=== PATIENT | male | born 1955 | race Caucasian/White ===

== ENCOUNTER 2023-02-05 10:51 | Observation (INO) | payer MEDICARE, SELFPAY ==
[2023-02-05] VITALS (53 sets, daily range): BP systolic 112–219; BP diastolic 66–165; PULSE 48–96; RESP 9–26; TEMP 36.7–37.3; O2SAT 80–100; BMI 30.3
--- NOTE | 2023-02-05 11:32 | ECG_ITS ---
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 Measurements Intervals [place] Rate: 63 P: 60 WA: 207 QRS: -9 QRSD: 106 T: 38 QT: 468 QTc: 480 Interpretive Statements SINUS RHYTHM PROLONGED QT INTERVAL No previous ECG available for comparison Electronically Signed On 02-05-2023 16:27:26 CDT by Dave Torres M.D. [id number]
[2023-02-05 11:43] LABS: Basophils # 0.1 10^3/uL (0.0-0.1); Basophils % 0.3 %; Hematocrit 55.7 % (42.0-52.0); Hemoglobin 19.1 g/dL (11.7-16.6); Lymphocytes # 2.5 10^3/uL (0.8-4.8); Mean Corpuscular HGB Conc 34.3 g/dL (30.0-36.0); Mean Corpuscular Hemoglobin 31.9 pg (28.0-34.0); Mean Platelet Volume 10.4 fL (7.4-10.4); Monocytes # 1.4 10^3/uL (0.2-0.9); Monocytes % 6.7 %; Neutrophils # 16.46 10^3/uL (1.8-7.7); Neutrophils % 80.5 %; Nucleated Red Blood Cells % 0 %; Platelet Count 238 10^3/cmm (130-400); Red Blood Count 5.99 10^6/uL (4.1-5.3); Red Cell Distribution Width 13.1 % (12.1-15.1); White Blood Count 20.4 10^3/uL (4.0-10.0)
--- NOTE | 2023-02-05 11:45 | CT_ITS ---
WS: [id number] CT ABDOMEN PELVIS TECHNIQUE: Contrast-enhanced CT of the abdomen and pelvis with coronal and sagittal reformatted image s. CLINICAL INFORMATION: SBO COMPARISON: None. DLP: 1142.[address] scans at [facility] use at least one of these dose optimization techniques: automated e xposure control; mA and/or kV adjustment per patient size (includes targeted exams where dose is matc hed to clinical indication); or iterative reconstruction. FINDINGS:Evidence of small bowel obstruction with diffuse distended fluid-filled small bowel loops me asuring up to 3.5 CM. Area of transition RIGHT lower quadrant with some swirling in the mesentery matt picious for adhesions or internal hernia. Transition point involves the distal one third ileum. Carrie l ileocecal valve. Normal colon. No pneumatosis or free air Diffuse fatty infiltration liver. Normal gallbladder. Normal portal vein and splenic vein. Small mode rate esophageal hiatal hernia with air-fluid level. Slight bibasilar atelectasis. Splenic granulomas. Fatty atrophy of the pancreas. Normal caliber abdominal aorta. Celiac and SMA are patent. Adrenal gl ands are normal. Normal renal parenchymal enhancement. Portal vein and splenic vein are patent. Heterogeneously enhancing enlarged prostate measuring 4.7 CM. Sigmoid diverticulosis. No evidence of acute diverticulitis. CT/CT abdomen pelvis w con* [id number] IMPRESSION: 1. Small bowel obstruction with fluid distended small bowel loops measuring up to 3.5 cm. No pneumatosis or free air. 2. Transition point to normal caliber small bowel RIGHT lower quadrant involvi ng the distal one third ileum with some swirling of the mesentery suspicious fo r internal hernia or adhesions. Terminal ileum is decompressed. 3. Small moderate esophageal hiatal hernia with air-fluid level. 4. Sigmoid diverticulosis. 5. Enlarged prostate.Correlation PSA. Discussed with Jean Paul Garcia DO at 02/05/2023 12:58 PM.
--- NOTE | 2023-02-05 11:47 | W.ED.ABDPA2 ---
HPI - Abdominal Pain General: Chief Complaint: Abdominal Pain Stated Complaint: abd pain, Fever, N/V Time Seen by Provider: 02/05/23 11:37 Source: patient Mode of arrival: ambulatory Limitations: no limitations History of Present Illness: This patient complains of abdominal pain. He states the pain began approximately 3 AM this morning and has persisted since that time. He states its colicky waxing and waning and cramping in nature. He states that he has been nauseated and has had dry heaves several times today. His last bowel movement was yesterday. He denies any known exposure to bad food, illness, recent travel, antibiotics. He has never had any abdominal surgeries. He states on or about [employer] Day of this year he had similar symptoms that were very short in duration and resolved with multiple loose stools without any bloody stools. No knowledge of history of diverticulosis etc. States he is urinated today some but has not been able to eat or drink. He is a non-smoker has no known history of cardiovascular disease. He lives alone. MD elicited complaint: abdominal pain Pain Consistency: intermittent Location: Diffuse Severity: severe Quality: cramping Radiation: none Migration to: no migration Exacerbating factors: nothing Relieving factors: nothing Associated Symptoms: Denies chills, dysuria, fever(s), hematochezia, hematemesis and melena Review of Systems Const: Denies: fever(s) or chills Eyes: Denies: change in vision ENMT: Denies: throat pain or odynophagia Card: Denies: chest pain or palpitations Resp: Denies: dyspnea, productive cough or non-productive cough GI: Reports: abdominal pain; Denies: hematemesis, hematochezia or melena : Denies: flank pain, difficulty urinating, dysuria or urinary frequency Musc: Denies: neck pain, back pain, extremity pain or extremity swelling Skin/Breast: Denies: rash or pruritus Neuro: Denies: headache(s) Psych: Denies: anxiety or depression Jan/Lymph: Denies: easy bruising or easy bleeding Physical Exam Narrative: EXAM NARRATIVE: Patient's noted to be alert makes good eye contact. He appears to be very uncomfortable intermittently moaning. He will answer questions in a goal-directed and fluent fashion. Const: COMMON NORMALS: patient oriented x3 GENERAL APPEARANCE: cooperative and in distress NUTRITIONAL APPEARANCE: overweight ORIENTATION/CONSCIOUSNESS: Yes awake HENMT: COMMON NORMALS: normocephalic, Normal nasal mucous membranes and turbinates present, moist oral mucous membranes and oropharynx normal HEAD & SCALP: normocephalic NOSE: Normal nasal mucous membranes and turbinates present Eye: COMMON NORMALS: Equal, round and reactive pupils present and EOMs intact bilaterally PUPIL: Yes Equal, round and reactive pupils present Neck/C-Spine: COMMON NORMALS: full ROM, no lymphadenopathy, no JVD and No carotid bruits Chest: COMMONS NORMALS: normal inspection of the chest and normal palpation of entire chest wall Resp: COMMON NORMALS: normal respiratory effort, No retractions and No use of accessory muscles EFFORT & INSPECTION: Yes able to speak in complete sentences Cardio: COMMON NORMALS: no JVD, regular rate, regular rhythm, No murmurs present (Cardio) and Peripheral pulses 2+ throughout RATE: regular rate RHYTHM: regular rhythm PERIPHERAL PULSES: Peripheral pulses 2+ throughout GI: COMMON NORMALS: no masses and no bruits INSPECTION: Yes central obesity AUSCULTATION: Yes Hypoactive bowel sounds present PALPATION: Yes Firmness to palpation present (GI) and Yes Tenderness to palpation present (GI) (Globally tender with voluntary guarding) : COMMON NORMALS: Yes no CVA tenderness BLADDER/KIDNEY EXAM: Yes no CVA tenderness Back/Pelvis: COMMON NORMALS: no CVA tenderness, thoracic and lumbar spine normal to inspection, no thoracic nor lumbar tenderness and thoraco-lumbar ROM normal Extremity: COMMON NORMALS: normal to inspection, full ROM, capillary refill normal, no calf tenderness and no pedal edema Neuro: COMMON NORMALS: patient oriented x3, moves all extremities, no focal motor deficits and no sensory deficits noted CRANIAL NERVES: Yes CN normal except as noted Psych: COMMON NORMALS: mental status grossly normal Skin: COMMON NORMALS: no rashes or lesions noted, no wounds and turgor normal GENERAL SKIN EXAM: no rashes or lesions noted and turgor normal Course Reevaluation(s): Reevaluation #1: The patient's pain is more controlled. Normal vital signs at this time. IV fluids infusing. Discussed his current diagnosis and plans for admission. He voiced understanding. Patient's not displayed any signs of arrhythmia or other concerns at this time about mesenteric ischemia. His consistent with a small bowel obstruction. We will continue with current management and plan for admission. Time: 13:10 Consultations: Consultation #1: Spoke with Dr. Addison general surgery on-call who requested I admit the patient to the hospitalist service and he will follow-up. Time: 13:03 Consultation #2: Discussed with Dr. Harper and hospitalist service to review we reviewed the case and he will plan for admission. Time: 13:05 Vital Signs: Vital signs: Vital Signs Temperature 98.1 F 02/05/23 11:10 Pulse Rate 90 02/05/23 12:55 Respiratory Rate 14 02/05/23 12:55 Blood Pressure 217/165 02/05/23 12:30 Pulse Oximetry 98 02/05/23 12:55 Oxygen Delivery Me thod Nasal Cannula 02/05/23 12:15 Oxygen Flow Rate 3 02/05/23 12:15 MDM - Abdominal Pain Medical Decision Making This patient came to our emergency department with abdominal pain that progressed over the 12 to 18 hours prior to arrival. No prior abdominal surgeries but has had at least 1 similar episode that resolved on its own in the past. Otherwise his general health is claimed to be good. His clinical evaluation here revealed a somewhat distended tense abdomen with guarding. Subsequently work-up was not engaged to evaluate for potential causes such as acute appendicitis, small bowel obstruction, other potential intra-abdominal pathology. Imaging as well as ancillary studies confirmed a small bowel obstruction as the working diagnosis for this patient. Consultation to general surgery was obtained who agreed with the plan for admission to the hospitalist service and he will comanage with the general hospitalist. Differential Diagnosis Likely abdominal pain and small bowel obstruction Lab Data I reviewed the patient's lab results. 02/05/23 11:25 02/05/23 11:25 Labs/Radiology: Laboratory Results WBC 20.4 10^3/uL (4.0-10.0) H 02/05/23 11:25 RBC 5.99 10^6/uL (4.1-5.3) H 02/05/23 11:25 Hgb 19.1 g/dL (11.7-16.6) H 02/05/23 11:25 Hct 55.7 % (42.0-52.0) H 02/05/23 11:25 MCV 93.0 fl (80-94) 02/05/23 11:25 MCH 31.9 pg (28.0-34.0) 02/05/23 11:25 MCHC 34.3 g/dL (30.0-36.0) 02/05/23 11:25 RDW 13.1 % (12.1-15.1) 02/05/23 11:25 Plt Count 238 10^3/cmm (130-400) 02/05/23 11:25 MPV 10.4 fL (7.4-10.4) 02/05/23 11:25 Neut % (Auto) 80.5 % 02/05/23 11:25 Lymph % (Auto) 12.0 % 02/05/23 11:25 [place] % (Auto) 6.7 % 02/05/23 11:25 Eos % (Auto) 0.0 % 02/05/23 11:25 Baso % (Auto) 0.3 % 02/05/23 11:25 Neut # (Auto) 16.46 10^3/uL (1.8-7.7) H 02/05/23 11:25 Lymph # (Auto) 2.5 10^3/uL (0.8-4.8) 02/05/23 11:25 [place] # (Auto) 1.4 10^3/uL (0.2-0.9) H 02/05/23 11:25 Eos # (Auto) 0.0 10^3/uL (0.0-0.8) 02/05/23 11:25 Baso # (Auto) 0.1 10^3/uL (0.0-0.1) 02/05/23 11:25 Nucleated RBC % (auto) 0 % 02/05/23 11:25 Nucleated RBCs # 0.0 /100WBC 02/05/23 11:25 Sodium 139 mmol/L (136-145) 02/05/23 11:25 Potassium 4.0 mmol/L (3.5-5.1) 02/05/23 11:25 Chloride 99 mmol/L (98-107) 02/05/23 11:25 Carbon Dioxide 19 mmol/L (22-29) L 02/05/23 11:25 Anion Gap 25.0 (5-19) H 02/05/23 11:25 BUN 22 mg/dL (8-23) 02/05/23 11:25 Creatinine 1.0 mg/dL (0.7-1.2) 02/05/23 11:25 GFR Calculation 74.5 mL/min (90-130) L 02/05/23 11:25 Glucose 195 mg/dL (65-115) H 02/05/23 11:25 Calculated Osmolality 297 mOsm/kg (285-295) H 02/05/23 11:25 Lactic Acid 3.9 mmol/L (0.5-2.2) H 02/05/23 11:25 Calcium 10.4 mg/dL (8.5-10.5) 02/05/23 11:25 Total Bilirubin 0.8 mg/dL (0.15-1.2) 02/05/23 11:25 AST 25 U/L (0-40) 02/05/23 11:25 ALT 31 U/L (0-41) 02/05/23 11:25 Alkaline Phosphatase 99 U/L (40-130) 02/05/23 11:25 Troponin T Gen 5 ng/L 6 ng/L (0-15) 02/05/23 11:10 Total Protein 8.4 g/dL (6.6-8.7) 02/05/23 11:25 Albumin 4.8 g/dL (3.5-5.2) 02/05/23 11:25 Globulin 3.6 g/dL (1.3-4.6) 02/05/23 11:25 Lipase 20 U/L (13-60) 02/05/23 11:25 EKG Data EKG 1: I personally reviewed and interpreted this EKG as follows: Interpretation: Contemporaneous review of resting EKG reveals a ventricular rate of 63 bpm. Has normal [place] interval, QRS duration, corrected QT interval. Normal axis. No acute ST-T wave changes noted at this time. 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
[2023-02-05] MEDS: ondansetron 2 mg/ML SDV 2 mL 4 MG IVP (11:53)
[2023-02-05] MEDS: HYDROmorphone 1 mg/mL INJ 1 mL IVP ×2 (11:53→13:20)
[2023-02-05] MEDS: sodium chloride 0.9% 1,000 ML 999 ML IV ×2 (11:54→14:53)
[2023-02-05 12:00] LABS: Lactic Sepsis W/Reflex 3.9 mmol/L (0.5-2.2)
[2023-02-05 12:01] LABS: Alanine Aminotransferase 31 U/L (0-41); Albumin Level 4.8 g/dL (3.5-5.2); Alkaline Phosphatase 99 U/L (40-130); Aspartate Amino Transferase 25 U/L (0-40); Blood Urea Nitrogen 22 mg/dL (8-23); Calcium 10.4 mg/dL (8.5-10.5); Carbon Dioxide 19 mmol/L (22-29); Chloride 99 mmol/L (98-107); Globulin 3.6 g/dL (1.3-4.6); Glomerular Filtration Rate 74.5 mL/min (90-130); Glucose 195 mg/dL (65-115); Lipase 20 U/L (13-60); Osmolality Calculated 297 mOsm/kg (285-295); Sodium 139 mmol/L (136-145); Total Bilirubin 0.8 mg/dL (0.15-1.2); Total Protein 8.4 g/dL (6.6-8.7)
[2023-02-05 12:21] LABS: Troponin T (5th) Once 6 ng/L (0-15)
[2023-02-05] MEDS: iohexol 350 mg/mL 500 mL Btl (per mL) IV (12:39)
[2023-02-05 13:24] LABS: Reflex Lactate Order REFLEX LACTIC ORDERD
--- NOTE | 2023-02-05 13:56 | PM.CONSULT ---
Providers/Reason For Consult Consulting Physician/Specialty*: Emergency room physician Reason for Consult*: Small bowel obstruction Primary Care Provider: ROLAN Ryan History of Present Illness History of Present Illness Zuleima Antony is a 67 year old male who presents with a 12 to 24-hour history of abdominal pain, nausea and vomiting. The patient had multiple episodes of small bowel obstruction over the last couple of years. The patient states that they resolved spontaneously. He has not required surgical intervention. The patient is never had surgical intervention on his abdomen. He denies fever or chills. The patient stated that he had a bowel movement within the last 12 hours. He said it was relatively normal possibly little bit small. It was not diarrhea. Review of Systems General: Reports: 10 or more systems reviewed and unremarkable except in HPI and below Medications/Allergies Home Medications Medication Instructions Recorded Confirmed Last Taken Type sour caicedo extract 1,000 mg 1,000 mg PO DAILY 02/05/23 02/05/23 02/05/23 History capsule (Tart Caicedo Extract) Allergies Allergy/AdvReac Type Severity Reaction Status Date / Time No Known Allergies Allergy Verified 02/05/23 11:14 Vitals/I&O/Wt Last Vital Signs Temp 98.1 F 02/05/23 11:10 Pulse 89 02/05/23 13:20 Resp 13 02/05/23 13:20 BP 158/105 02/05/23 13:20 Pulse Ox 97 02/05/23 13:20 O2 Del Method Nasal Cannula 02/05/23 13:15 O2 Flow Rate 3 02/05/23 13:15 02/04/23 02/05/23 02/05/23 22:59 06:59 14:59 Intake Total 1000 / 1000 Balance 1000 / 1000 Weight last 48 hrs Weight 230 lb Physical Exam Narrative: This is a morbidly obese male who appears to be in no acute distress HEENT is normocephalic atraumatic Neck: Free range of motion, nontender. The patient has a midline trachea. There is no masses that I can appreciate. There is no thyromegaly Lungs: Clear to auscultation and percussion Heart: Is regular rate and rhythm without murmurs. There is no S3 or S4. There is no rubs clicks or JVD noted Abdomen: Morbidly obese, soft, no focal tenderness. There is no rebound. The patient has significantly decreased bowel sounds. I do not appreciate any rushes or tinkles. There are no hernias that I can appreciate. There is no costovertebral angle tenderness Extremities: There is no obvious deformities or point tenderness. There is no clubbing cyanosis or edema. The patient has good capillary refill in both hands and feet. Neurologic: The patient is awake, alert, oriented x3. The patient moves all 4 extremities without difficulty. The patient sensations intact to light touch throughout. Data 02/05/23 11:25 02/05/23 11:25 Attestation for Other Data: I personally reviewed and interpreted the following: (I reviewed all the patient's labs as well as the CT scan of the patient's abdomen and pelvis) A&P Assessment and plan (1) Small bowel obstruction: We will follow this patient with the hospitalist. Will place an NG tube. The patient can have ice chips at this time. We will follow the patient with serial exams. If the patient is doing well in the morning we will get a Gastrografin small bowel follow-through. We will make sure the patient is hydrated. The exact etiology of the patient's intermittent small bowel obstructions unclear. Reviewing the CT scan the patient does have some decompressed small bowel and what looks like the mid jejunum. Oddly, the rest of the small bowel is dilated. He just has a short segment that seems to be decompressed. Coding Level of Care Code 05799 Diagnoses Small bowel obstruction K56.609
[2023-02-05 14:34] LABS: Lactic Acid level (Lactate) 1.5 mmol/L (0.5-2.2)
--- NOTE | 2023-02-05 17:40 | PM.HP ---
Providers/Chief Complaint Admitting Physician: Kyle Harper MD Primary Care Provider: ROLAN Ryan Chief Complaint: abd pain, Fever, N/V History of Present Illness Zuleima Antony is a 67 year old male with no significant past medical history came in with chief complaint of Worsening abdominal pain nausea and dry heaves started around 3 AM, and since then progressively worsened.CT abdomen pelvis done showed: Small bowel obstruction.He has denied any prior history of bowel surgery, any sick contact.His pertinent labs and vitals have been reviewed. Surgery has been consulted by ER. Review of Systems General: Reports: 10 or more systems reviewed and unremarkable except in HPI and below Const: Denies: fever(s), chills, body aches, change in appetite or diaphoresis Card: Denies: palpitations, edema, swelling of feet/ankles, dyspnea on exertion, orthopnea or leg pain with exertion Resp: Denies: dyspnea, productive cough, wheezing or pain on inspiration GI: Reports: abdominal pain and nausea; Denies: vomiting, diarrhea or constipation : Denies: flank pain or difficulty urinating Musc: Denies: back pain, extremity pain or extremity swelling Neuro: Denies: headache(s), difficulty walking or confusion Medications/Allergies Home Medications Medication Instructions Recorded Confirmed Last Taken Type sour whyte extract 1,000 mg 1,000 mg PO DAILY 02/05/23 02/05/23 02/05/23 History capsule (Tart Whyte Extract) Allergies Allergy/AdvReac Type Severity Reaction Status Date / Time No Known Allergies Allergy Verified 02/05/23 11:14 Vitals/I&O/Wt Last Vital Signs Temp 98.1 F 02/05/23 11:10 Pulse 82 02/05/23 15:30 Resp 17 02/05/23 15:30 BP 149/90 02/05/23 15:30 Pulse Ox 91 02/05/23 15:30 O2 Del Method Room Air 02/05/23 15:25 O2 Flow Rate 3 02/05/23 13:40 02/05/23 02/05/23 02/05/23 06:59 14:59 22:59 Intake Total 1000 / 1000 1000 / 2000 Balance 1000 / 1000 1000 / 2000 Weight last 48 hrs Weight 104.326 kg Physical Exam Const: COMMON NORMALS: patient oriented x3 HENMT: COMMON NORMALS: normocephalic and atraumatic HEAD & SCALP: normocephalic and atraumatic Resp: COMMON NORMALS: normal respiratory effort, No retractions, No use of accessory muscles and clear to auscultation bilaterally EFFORT & INSPECTION: Yes symmetric chest movement AUSCULTATION: clear to auscultation bilaterally Cardio: COMMON NORMALS: regular rate, regular rhythm, S1 normal heart sound present, S2 normal heart sound present, No gallops present (Cardio), No murmurs present (Cardio), No rub (Cardio) and Peripheral pulses 2+ throughout RATE: regular rate RHYTHM: regular rhythm HEART SOUNDS: S1 normal heart sound present and S2 normal heart sound present PERIPHERAL PULSES: Peripheral pulses 2+ throughout GI: OTHER: Generalized abdominal tenderness with voluntary guarding, hypoactive bowel sounds Extremity: COMMON NORMALS: no clubbing, cyanosis or edema and no pedal edema Neuro: COMMON NORMALS: patient oriented x3 Data 02/06/23 05:24 02/06/23 05:24 A&P Assessment and plan (1) Small bowel obstruction: Plan 67 year old male with no significant past medical history came in with chief complaint of Worsening abdominal pain nausea and dry heaves started around 3 AM, and since then progressively worsened.CT abdomen pelvis done showed: Small bowel obstruction.He has denied any prior history of bowel surgery, any sick contact. Assessment: SBO Current plan is to place NG tube, bowel rest Pain control IV hydration Serial abdominal imaging studies Encourage ambulation Electrolyte corrections CODE STATUS: Full code Attestations Medical Necessity Statement*: Patient is to be in hospital for management of small bowel obstruction. Anticipated length of stay greater 2 midnights Coding Level of Care Code 41272 Diagnoses Small bowel obstruction K56.609
[2023-02-05] MEDS: sodium chloride 0.9% 1,000 ML 100 ML IV (17:54)
[2023-02-05 18:32] LABS: Add Urine Microscopic? YES; Bilirubin Urine 1+ (Negative); Blood Urine Neg (Negative); Glucose Urine UA Norm (Normal); Ketones Urine 1+ (Negative); Leukocyte Esterase Urine Negative (Negative); Nitrate Urine Negative (Negative); Protein Urine 1+ (Negative); Specific Gravity, Urine 1.015 (1.005-1.030); Urine Appearance Clear (CLEAR); Urine Color Yellow (Yellow); Urobilinogen Urine Neg (Negative); pH Urine 5 (5-7)
[2023-02-05 18:33] LABS: Hyaline Casts Urine 0-4 /lpf
--- NOTE | 2023-02-05 19:49 | PC.NURSE ---
Dr. Harper in to see patient and ordered okay to give patient water.
[2023-02-06] MEDS: sodium chloride 0.9% 1,000 ML 100 ML IV (04:08)
--- NOTE | 2023-02-06 04:12 | PC.NURSE ---
Patient reports 3 small bowel movements throughout shift, however these were not visualized by staff.
[2023-02-06 05:07] VITALS: BP 147/69; PULSE 64; RESP 16; TEMP 36.8; O2SAT 95
[2023-02-06 06:05] LABS: Basophils % 0.3 %; Eosinophils # 0.1 10^3/uL (0.0-0.8); Eosinophils % 1.8 %; Lymphocytes # 2.1 10^3/uL (0.8-4.8); Lymphocytes % 27.8 %; Mean Corpuscular HGB Conc 33.3 g/dL (30.0-36.0); Mean Corpuscular Hemoglobin 32.1 pg (28.0-34.0); Mean Corpuscular Volume 96.4 fl (80-94); Mean Platelet Volume 10.2 fL (7.4-10.4); Monocytes # 0.8 10^3/uL (0.2-0.9); Monocytes % 10.3 %; Neutrophils % 59.7 %; Nucleated Red Blood Cells % 0 %; Platelet Count 156 10^3/cmm (130-400); Red Blood Count 4.67 10^6/uL (4.1-5.3); Red Cell Distribution Width 13.4 % (12.1-15.1); White Blood Count 7.7 10^3/uL (4.0-10.0)
[2023-02-06 06:29] LABS: Anion Gap 13.1 (5-19); Blood Urea Nitrogen 23 mg/dL (8-23); Calcium 8.1 mg/dL (8.5-10.5); Carbon Dioxide 23 mmol/L (22-29); Chloride 104 mmol/L (98-107); Glomerular Filtration Rate 84.2 mL/min (90-130); Glucose 113 mg/dL (65-115); Magnesium 2.1 mg/dL (1.7-2.3); Osmolality Calculated 286 mOsm/kg (285-295); Potassium 4.1 mmol/L (3.5-5.1); Sodium 136 mmol/L (136-145)
[2023-02-06 08:00] VITALS: BP 122/77; PULSE 62; RESP 17; TEMP 36.7; O2SAT 95
[2023-02-06 08:20] LABS: Basophils % 0.2 %; Eosinophils # 0.1 10^3/uL (0.0-0.8); Eosinophils % 1.7 %; Hematocrit 46.5 % (42.0-52.0); Hemoglobin 15.6 g/dL (11.7-16.6); Lymphocytes # 2.4 10^3/uL (0.8-4.8); Mean Corpuscular HGB Conc 33.5 g/dL (30.0-36.0); Mean Corpuscular Hemoglobin 32.6 pg (28.0-34.0); Mean Corpuscular Volume 97.1 fl (80-94); Mean Platelet Volume 10.2 fL (7.4-10.4); Monocytes # 0.8 10^3/uL (0.2-0.9); Monocytes % 10.3 %; Neutrophils # 4.65 10^3/uL (1.8-7.7); Neutrophils % 57.6 %; Nucleated Red Blood Cells % 0 %; Platelet Count 165 10^3/cmm (130-400); Red Blood Count 4.79 10^6/uL (4.1-5.3); Red Cell Distribution Width 13.4 % (12.1-15.1); White Blood Count 8.1 10^3/uL (4.0-10.0)
--- NOTE | 2023-02-06 11:51 | PM.PN ---
Subjective Subjective: This patient is afebrile. The patient had multiple bowel movements overnight. The patient is tolerating a full liquid diet. He had no nausea today. The patient states that he feels well. He states that he does not have any abdominal pain. He states that he is over this episode. Medications: Reviewed: Yes Vitals/I&O/Wt Last Vital Signs Temp 98.0 F 02/06/23 08:00 Pulse 62 02/06/23 08:00 Resp 17 02/06/23 08:00 BP 122/77 02/06/23 08:00 Pulse Ox 95 02/06/23 08:00 O2 Del Method Room Air 02/06/23 05:07 O2 Flow Rate 3 02/05/23 13:40 02/05/23 02/06/23 02/06/23 22:59 06:59 14:59 Intake Total 1000 / 2000 1240 / 3240 480 / 480 Output Total 300 / 300 Balance 700 / 1700 1240 / 2940 480 / 480 Weight last 48 hrs Weight 230 lb Weight 230 lb Physical Exam Narrative: Generally: No acute distress Lungs: Clear to auscultation Heart: Regular rate and rhythm without murmurs. There is no S3 or S4. There is no rubs clicks or JVD noted. Abdomen: Obese, soft, nontender, normal active bowel sounds. There is no rushes or tinkles. The patient has no rebound tenderness. There is no hernias that I can appreciate. There is no hepatosplenomegaly. Extremities: No clubbing cyanosis or edema. The patient has good capillary refill in his hands. Neurologic: The patient is awake, alert, oriented x3. The patient moves all 4 extremities without difficulty. The patient sensations intact to light touch throughout. Data 02/06/23 07:45 02/06/23 05:24 Attestation for Other Data: I personally reviewed and interpreted the following: (All labs have been reviewed) A&P Assessment and plan (1) Small bowel obstruction: The exact etiology of the patient's partial small bowel obstruction is unclear. The patient may have some adhesions or some kinking of his small bowel. Either way, what ever this is seems to have resolved. We will place the patient on a regular diet. If the patient tolerates a regular diet I believe the patient can be discharged home later on this afternoon. Attestations Medical Necessity Statement*: Per hospitalist Coding Level of Care Code 76029 Diagnoses Small bowel obstruction K56.609
[2023-02-06 12:00] VITALS: BP 118/74; PULSE 62; RESP 16; TEMP 36.6; O2SAT 95
[2023-02-06 13:32] VITALS: BP 118/74; PULSE 62; RESP 16; TEMP 36.6; O2SAT 95
--- NOTE | 2023-02-06 13:38 | PC.NURSE ---
1330- IV out. Discharge paperwork and education completed. Ambulates out of hospital.
--- NOTE | 2023-02-06 15:22 | P.DS_ITS ---
Discharge Providers Date of Admission: 02/05/23 15:26 Date of Discharge: February 06, 2023 Attending Provider at Admission: Kyle Harper MD Attending Provider at Discharge: Kyle Harper MD Primary Care Provider: ROLAN Ryan Diagnoses at Discharge Discharge Diagnosis (1) Small bowel obstruction: Status: Acute Reason for Visit Reason for Visit: abd pain, Fever, N/V Hospital Course Hospital Course 67 year old male with no significant past medical history came in with chief complaint of Worsening abdominal pain nausea and dry heaves started around 3 AM, and since then progressively worsened.CT abdomen pelvis done showed: Small bowel obstru ction.He has denied any prior history of bowel surgery, any sick contact.Patient was admitted for the management of small bowel obstruction, initially was kept n.p.o. IV fluids pain control antiemetic, electrolytes were monitored, initial plan was to place NG tube, but fortunately patient started having bowel movements, hence NG tube was not placed, Patient was started on clear liquids, and was then advanced to regular diet which he tolerated well. He was discharged in stable condition to home. Physical Exam Const: COMMON NORMALS: patient oriented x3 HENMT: COMMON NORMALS: normocephalic and atraumatic HEAD & SCALP: normocephalic and atraumatic Resp: COMMON NORMALS: normal respiratory effort, No retractions, No use of accessory muscles and clear to auscultation bilaterally EFFORT & INSPECTION: Yes symmetric chest movement AUSCULTATION: clear to auscultation bilaterally Cardio: COMMON NORMALS: regular rate, regular rhythm, S1 normal heart sound present, S2 normal heart sound present, No gallops present (Cardio), No murmurs present (Cardio), No rub (Cardio) and Peripheral pulses 2+ throughout RATE: regular rate RHYTHM: regular rhythm HEART SOUNDS: S1 normal heart sound present and S2 normal heart sound present PERIPHERAL PULSES: Peripheral pulses 2+ throughout GI: COMMON NORMALS: Normal to inspection, nondistended, normoactive bowel sounds present, Soft to palpation and non-tender PALPATION: Yes Soft to palpation Extremity: COMMON NORMALS: no clubbing, cyanosis or edema and no pedal edema Neuro: COMMON NORMALS: patient oriented x3 Discharge Data Studies Completed and Pending Completed Studies During Hospitalization Category Date Time Status CT abdomen pelvis w con* [id number] Stat Cat Scan 02/05/23 11:45 Completed Radiology Impressions Abdomen/Pelvis CT 02/05/23 11:45 IMPRESSION: 1. Small bowel obstruction with fluid distended small bowel loops measuring up to 3.5 cm. No pneumatosis or free air. 2. Transition point to normal caliber small bowel RIGHT lower quadrant involving the distal one third ileum with some swirling of the mesentery suspicious for internal hernia or adhesions. Terminal ileum is decompressed. 3. Small moderate esophageal hiatal hernia with air-fluid level. 4. Sigmoid diverticulosis. 5. Enlarged prostate.Correlation PSA. Discussed with Jean Paul Garcia DO at 02/05/2023 12:58 PM. Laboratory Results WBC 8.1 10^3/uL (4.0-10.0) 02/06/23 07:45 RBC 4.79 10^6/uL (4.1-5.3) 02/06/23 07:45 Hgb 15.6 g/dL (11.7-16.6) 02/06/23 07:45 Hct 46.5 % (42.0-52.0) 02/06/23 07:45 MCV 97.1 fl (80-94) H 02/06/23 07:45 MCH 32.6 pg (28.0-34.0) 02/06/23 07:45 MCHC 33.5 g/dL (30.0-36.0) 02/06/23 07:45 RDW 13.4 % (12.1-15.1) 02/06/23 07:45 Plt Count 165 10^3/cmm (130-400) 02/06/23 07:45 MPV 10.2 fL (7.4-10.4) 02/06/23 07:45 Neut % (Auto) 57.6 % 02/06/23 07:45 Lymph % (Auto) 30.0 % 02/06/23 07:45 [place] % (Auto) 10.3 % 02/06/23 07:45 Eos % (Auto) 1.7 % 02/06/23 07:45 Baso % (Auto) 0.2 % 02/06/23 07:45 Neut # (Auto) 4.65 10^3/uL (1.8-7.7) 02/06/23 07:45 Lymph # (Auto) 2.4 10^3/uL (0.8-4.8) 02/06/23 07:45 [place] # (Auto) 0.8 10^3/uL (0.2-0.9) 02/06/23 07:45 Eos # (Auto) 0.1 10^3/uL (0.0-0.8) 02/06/23 07:45 Baso # (Auto) 0.0 10^3/uL (0.0-0.1) 02/06/23 07:45 Nucleated RBC % (auto) 0 % 02/06/23 07:45 Nucleated RBCs # 0.0 /100WBC 02/06/23 07:45 Sodium 136 mmol/L (136-145) 02/06/23 05:24 Potassium 4.1 mmol/L (3.5-5.1) 02/06/23 05:24 Chloride 104 mmol/L (98-107) 02/06/23 05:24 Carbon Dioxide 23 mmol/L (22-29) 02/06/23 05:24 Anion Gap 13.1 (5-19) 02/06/23 05:24 BUN 23 mg/dL (8-23) 02/06/23 05:24 Creatinine 0.9 mg/dL (0.7-1.2) 02/06/23 05:24 GFR Calculation 84.2 mL/min (90-130) L 02/06/23 05:24 Glucose 113 mg/dL (65-115) 02/06/23 05:24 Calculated Osmolality 286 mOsm/kg (285-295) 02/06/23 05:24 Lactic Acid 3.9 mmol/L (0.5-2.2) H 02/05/23 11:25 Lactic Acid (Sepsis) 1.5 mmol/L (0.5-2.2) 02/05/23 13:53 Calcium 8.1 mg/dL (8.5-10.5) L 02/06/23 05:24 Magnesium 2.1 mg/dL (1.7-2.3) 02/06/23 05:24 Total Bilirubin 0.8 mg/dL (0.15-1.2) 02/05/23 11:25 AST 25 U/L (0-40) 02/05/23 11:25 ALT 31 U/L (0-41) 02/05/23 11:25 Alkaline Phosphatase 99 U/L (40-130) 02/05/23 11:25 Troponin T Gen 5 ng/L 6 ng/L (0-15) 02/05/23 11:10 Total Protein 8.4 g/dL (6.6-8.7) 02/05/23 11:25 Albumin 4.8 g/dL (3.5-5.2) 02/05/23 11:25 Globulin 3.6 g/dL (1.3-4.6) 02/05/23 11:25 Lipase 20 U/L (13-60) 02/05/23 11:25 Urine Color Yellow (Yellow) 02/05/23 17:51 Urine Appearance Clear (CLEAR) 02/05/23 17:51 Urine pH 5 (5-7) 02/05/23 17:51 Ur Specific [place] 1.015 (1.005-1.030) 02/05/23 17:51 Urine Protein 1+ (Negative) H 02/05/23 17:51 Urine Glucose (UA) Norm (Normal) 02/05/23 17:51 Urine Ketones 1+ (Negative) H 02/05/23 17:51 Urine Blood Neg (Negative) 02/05/23 17:51 Urine Nitrate Negative (Negative) 02/05/23 17:51 Urine Bilirubin 1+ (Negative) H 02/05/23 17:51 Urine Urobilinogen Neg mg/dL (Negative) 02/05/23 17:51 Ur Leukocyte Esterase Negative (Negative) 02/05/23 17:51 Urine RBC None /hpf (0-2) 02/05/23 17:51 Urine WBC None /hpf (0-5) 02/05/23 17:51 Ur Squamous Epith Cells None /hpf (0-5) 02/05/23 17:51 Amorphous Sediment Not Reportable 02/05/23 17:51 Urine Bacteria None /hpf (NONE) 02/05/23 17:51 Hyaline Casts 0-4 /lpf H 02/05/23 17:51 Vitals Last Vital Signs Temp 97.9 F 02/06/23 13:32 Pulse 62 02/06/23 13:32 Resp 16 02/06/23 13:32 BP 118/74 02/06/23 13:32 Pulse Ox 95 02/06/23 13:32 O2 Del Method Room Air 02/06/23 05:07 O2 Flow Rate 3 02/05/23 13:40 Discharge Plan Discharge Patient Disposition: Home Condition: Stable Prescriptions: Continued Tart Whyte Extract 1,000 mg Capsule 1,000 mg PO DAILY Discharge Orders: Discharge Order (Routine); Ordered 02/06/23 Ordered By: Kyle Harper Referrals: Jesus Akhtar DO [Staff Physician] - 02/13/23 10:20 am Patient Instructions: Bowel Obstruction (GEN), Opioid Safety Discharge Attestations Time Spent in Discharge Care*: less than 30 min Quality Metrics Clinical Quality Measures [ No reported AMI, CVA or VTE this stay] Coding Level of Care Code Acute Code for Chg Fwd Diagnoses Small bowel obstruction K56.609
== END 2023-02-06 13:39 | disposition home or self-care (01) ==
LOC: ER 13:29 → MEDSURG 15:44
PROVIDERS: Physician Assistant; Admitting Provider Internal Medicine; Emergency Provider Emergency Medicine; PCP Nurse Practitioner; Visit Provider Internal Medicine
DX: K56.609 Unspecified intestinal obstruction, unspecified as to partial versus complete obstruction (principal); E66.9 Obesity, unspecified; Z68.30 Body mass index [BMI] 30.0-30.9, adult; I45.81 Long QT syndrome
CPT/HCPCS: 36415; 74177; 80048; 80053; 81001; 83605; 83690; 83735; 84484; 85025; 93005; 96361; 96374; 96375; 99285; G0378; J1170; J2405; J7030; Q9967

== ENCOUNTER → 2023-02-13 10:01 | Outpatient (BNVA) | payer MEDICARE, SELFPAY | PROVIDERS: PCP Family Medicine; Visit Provider Family Medicine | DX: Z12.5 Encounter for screening for malignant neoplasm of prostate (principal) | CPT/HCPCS: G0103 ==

== ENCOUNTER → 2023-02-24 10:05 | Outpatient (BNVA) | payer MEDICARE, SELFPAY | PROVIDERS: PCP Family Medicine; Visit Provider Nurse Practitioner Family | DX: M10.9 Gout, unspecified (principal) | CPT/HCPCS: 84550 ==

== ENCOUNTER → 2023-03-26 12:58 | Outpatient (BNVA) | payer MEDICARE, SELFPAY | PROVIDERS: PCP Family Medicine; Visit Provider Surgery | DX: R10.9 Unspecified abdominal pain (principal); R14.0 Abdominal distension (gaseous) | CPT/HCPCS: 99203 ==

== ENCOUNTER 2023-04-23 07:12 | Day surgery (SDC) | payer MEDICARE, SELFPAY ==
[2023-04-21 11:42] VITALS: BMI 31.6
[2023-04-23 07:34] VITALS: BP 148/91; PULSE 63; RESP 18; TEMP 36.1; O2SAT 97
[2023-04-23] MEDS: sodium chloride 0.9% 1,000 ML 30 ML IV (07:41)
--- NOTE | 2023-04-23 08:21 | P.ANESASSM_ITS ---
Pre-Anesthetic Assessment Height/Weight: Height 1.85 m Weight 108.862 kg Temp Pulse Resp BP Pulse Ox O2 Del Method 97.0 F L 63 18 148/91 97 Room Air 04/23/23 07:34 04/23/23 07:34 04/23/23 07:34 04/23/23 07:34 04/23/23 07:34 04/23/23 07:34 Operation Date: 04/23/23 08:30 Proposed Procedures p [id number] egd [id number] colon R14.0,R10.9(Not Applicable) - Shaun Shrestha DO s Colonoscopy(Not Applicable) - Shaun Shrestha DO Familial anesthetic complications: none Was Beta Nicole taken within 24 hours: N/A Was Clonidine taken within 24 hours: N/A Last intake: Intake Last Liquid Date 04/22/23 Last Liquid Time 22:30 Last Solid Date 04/21/23 Last Solid Time 21:00 Social No alcohol and No tobacco Exam alert and oriented x 3 Airway Submandibular: within normal limits Cervical ROM: within normal limits Mallampati: Class I Dentition: full History/ROS No significant history except as noted Metabolic Morbid Obesity [facility] [place]/skel gout, arthritis Anesthetic Plan ASA status: 3 Anesthesia: Anesthesia Evaluation, General and MAC Medications/Allergies Home Medications Medication Instructions Recorded Confirmed Last Taken Type sour whyte extract 1,000 mg 1,000 mg PO DAILY 02/05/23 04/23/23 04/21/23 History capsule (Tart Whyte Extract) Allergies Allergy/AdvReac Type Severity Reaction Status Date / Time tetnus shot Allergy Mild ALGY-Fever Uncoded 04/23/23 07:33 Current Medications Generic Name Dose Route Start Last Admin Trade Name Freq PRN Reason Stop Dose Admin Sodium Chloride 1,000 mls @ 30 mls/hr 04/23/23 07:30 04/23/23 07:41 Sodium Chloride 0.9% IV 04/24/23 07:29 30 mls/hr .Q24H JAKI Administration PFSH Anesthesia Medical History (Updated 03/26/23 @ 14:37 by Shaun Shrestha DO) Small bowel obstruction Surgical History (Updated 03/26/23 @ 14:37 by Shaun Shrestha DO) Hx of cataract extraction bilateral Hx of colonoscopy with polypectomy 20 yrs ago Family History Father Cancer Prostate Mother Cancer Breast/Liver Denies family history of Diabetes CAD (coronary artery disease) Dementia Chronic kidney disease (CKD) Bleeding disorder Family history of premature coronary artery disease Lung disease Hypertension Stroke Social History Smoking and tobacco status: never smoked Second hand smoke exposure: No Smoking risk assessment/counseling performed?: No Alcohol intake: current Alcohol intake frequency: holidays/special occasions only Desire information about alcohol rehabilitation?: No Counseling given: No Substance/Drug Use: never Desire information about substance/drug rehabilitation?: No Counseling given: No Adopted: No Caregiver/support person: No Lives independently: Yes Current gender identity: Male Data Anesthesia Cardiac Studies: No Data to Display
--- NOTE | 2023-04-23 09:10 | W.PM.OPSUD ---
Surgery/Procedure H&P Update DATE OF PROCEDURE: April 23, 2023 DATE H&P PERFORMED: 03/26/23 H&P UPDATE INFORMATION: I have reviewed H&P completed within last 30 days, I have examined patient prior to procedure and Changes to prior documentation as noted here CHANGES TO PREVIOUS DOCUMENTATION: Patient has a history of colon polyps and is undergoing a screening colonoscopy PLANNED PROCEDURE: Operation Date: 04/23/23 08:30 Proposed Procedures p [id number] egd [id number] colon R14.0,R10.9(Not Applicable) - DO lilia Buchanan Colonoscopy(Not Applicable) - Shaun Shrestha DO
[2023-04-23 09:37] VITALS: BP 113/81; PULSE 56; RESP 18; TEMP 36.4; O2SAT 92
--- NOTE | 2023-04-23 09:50 | ANE.PACU2 ---
Inpatient post-anesthesia follow up: Airway intact: Yes Vital signs: Temperature 97.5 F Pulse Rate 60 Respiratory Rate 18 Blood Pressure 123/84 Pulse Oximetry 94 Oxygen Delivery Me thod Room Air Oxygen Flow Rate Fraction of Inspir ed Oxygen Hydration adequate: Yes Nausea and vomiting: Yes Pain level: 1 Mental status: Baseline
[2023-04-23 09:52] VITALS: BP 123/84; PULSE 60; RESP 18; O2SAT 94
== END 2023-04-23 10:18 | disposition home or self-care (01) ==
PROVIDERS: PCP Family Medicine; Visit Provider Surgery
PROC: 0DJ08ZZ Inspection of Upper Intestinal Tract, Via Natural or Artificial Opening Endoscopic (ICD-10-PCS; CPT 43235; principal; 2023-04-23 08:30)
PROC: 0DJD8ZZ Inspection of Lower Intestinal Tract, Via Natural or Artificial Opening Endoscopic (ICD-10-PCS; CPT 45378; 2023-04-23 08:30)
DX: R14.0 Abdominal distension (gaseous) (principal); R10.9 Unspecified abdominal pain; K29.80 Duodenitis without bleeding; K26.3 Acute duodenal ulcer without hemorrhage or perforation; K29.50 Unspecified chronic gastritis without bleeding; K44.9 Diaphragmatic hernia without obstruction or gangrene; K57.30 Diverticulosis of large intestine without perforation or abscess without bleeding; Z86.010 Personal history of colon polyps
CPT/HCPCS: 43239; 45378; 88305; 88342; G0121; J2704; J7030

== ENCOUNTER 2023-04-29 07:04 | Inpatient (IN) | payer MEDICARE, SELFPAY ==
[2023-04-29] VITALS (9 sets, daily range): BP systolic 133–168; BP diastolic 78–94; PULSE 57–89; RESP 15–20; TEMP 36.4–36.7; O2SAT 93–99; BMI 30.3
--- NOTE | 2023-04-29 07:13 | CTR_ITS ---
PROCEDURE INFORMATION: Exam: CT Abdomen And Pelvis With Contrast Exam date and time: 04/29/2023 8:00 AM Age: 67 years old Clinical indication: Nausea and vomiting; Additional info: Vomiting/dry heaves, no bm; Concern for obstruction, HX of obstruction; No previous abdominal surgeries; Recent TECHNIQUE: Imaging protocol: Computed tomography of the abdomen and pelvis with contrast. Radiation optimization: All CT scans at this facility use at least one of these dose optimization techniques: automated exposure control; mA and/or kV adjustment per patient size (includes targeted exams where dose is matched to clinical indication); or iterative reconstruction. Contrast material: OMNI 350; Contrast volume: 100 ml; Contrast route: INTRAVENOUS (IV); REPORTING DATA: Count of CT and Cardiac NM exams in prior 12 months: This patient has received [address] and 0 known cardiac nuclear medicine studies in the 12 months prior to the current study. COMPARISON: CT abdomen pelvis w con* [id number] 02/05/2023 12:30 PM RADIATION DOSE METRICS: Total DLP (mGy-cm): 1087.82 FINDINGS: Diaphragm: Small to moderate hiatal hernia. Liver: Tiny hepatic calcification in keeping with sequela of old granulomatous disease. Gallbladder and bile ducts: Normal. No calcified stones. No ductal dilation. Pancreas: Fatty infiltration of the pancreas greatest at the tail. No ductal dilatation. Spleen: Tiny splenic calcifications in keeping with sequela of old granulomatous disease. Adrenal glands: Normal. No mass. Kidneys and ureters: Normal. No hydronephrosis. Stomach and bowel: Mildly dilated fluid-filled ileal small bowel loops measuring 3.3 cm in diameter of the right lower quadrant. Few multifocal areas of relative narrowing at the distal ileum without definite transition point. Couple areas at the distal ileum show submucosal fatty deposition which may be seen in the setting of prior infectious/inflammatory insult. Normal caliber stomach and jejunum. Largely fluid-filled colon with small amount of formed stool contents at the rectosigmoid colon. Colonic diverticulosis without findings of diverticulitis. Appendix: Normal. Intraperitoneal space: Again, there is mild swirling of the mesentery and mild edema/fluid of the right lower quadrant. No free air or rim enhancing fluid collection. Vasculature: Mild systemic atherosclerotic calcification without aneurysmal dilatation. Lymph nodes: No enlarged lymph nodes. Stable subtle graying of the jejunal mesentery with thin pseudocapsule and relative sparing along the traversing vessels and lymph nodes, which are non suspicious and measure less than 5 mm in the short axis. Urinary bladder: Unremarkable as visualized. Reproductive: Enlarged prostate measures 5.8 cm in transverse dimension. Bones/joints: No acute fracture. Degenerative changes along the spine greatest from L3-S1. Soft tissues: Small fat containing bilateral inguinal and umbilical hernias. Other findings: Sequela of old granulomatous disease in the imaged lower chest. CT/CT abdomen pelvis w con* [id number] IMPRESSION: 1. Suspect partial small bowel obstruction with mild right lower quadrant swirling and mesenteric edema raising the possibility of internal hernia and/or adhesive disease. 2. Additional chronic and incidental findings as above, to include small to moderate hiatal hernia, colonic diverticulosis, prostatomegaly, and findings characteristic for sclerosing mesenteritis.
--- NOTE | 2023-04-29 07:14 | ED_ITS ---
Documented by User: JERMAINE Lundy 04/29/23 09:15 HPI - Abdominal Pain General: Chief Complaint: Abdominal Pain Stated Complaint: stomach cramps/Fever/N/V Time Seen by Provider: 04/29/23 07:06 Source: patient Mode of arrival: wheelchair Limitations: no limitations History of Present Illness: Patient is a 67 year old male who presents with complaints of abdominal pain, n ausea and vomiting over the past several hours.?He reports multiple episodes of small bowel obstruction over the last couple of years.? The patient states that they resolve spontaneously and has never required surgical intervention.?He has no previous abdominal surgeries. States symptoms today feel similar. Reporting bloating/cramping. He states his last bowel movement was yesterday and stated it was loose. He relates this to taking stool softeners. Reports he is not passing gas this morning. States upon arrival to the ED he sweaty and feels feverish. Afebrile in triage. Patient had EGD/colonoscopy by Dr. Shrestha 5 benedict ago on 04/23. MD elicited complaint: abdominal pain Pertinent past history: other (previous SBO) Onset (ago): hour(s) Pain Consistency: constant Location: Diffuse Severity: severe Quality: cramping Radiation: none Migration to: no migration Exacerbating factors: nothing Relieving factors: nothing Associated Symptoms: Reports change in bowel habits, GI cramping, fever(s) (subjective-states he feels sweaty), nausea and vomiting; Denies chills, dysuria, hematochezia, hematemesis and melena Review of Systems Const: Reports: fever(s) (subjective-states he feels sweaty); Denies: chills, body aches, fatigue or malaise Card: Denies: chest pain Resp: Denies: dyspnea GI: Reports: abdominal pain, nausea, vomiting, GI cramping and change in bowel habits; Denies: hematemesis, rectal pain, rectal swelling, hematochezia or melena : Denies: flank pain, difficulty urinating, dysuria, urinary frequency, urinary urgency or urinary hesitancy Musc: Denies: neck pain, back pain, extremity pain or joint pain Skin/Breast: Denies: rash Neuro: Denies: headache(s), numbness in extremities, weakness in extremities, sensory changes or dizziness PFSH ED PFSH: Medical History Small bowel obstruction Surgical History Hx of cataract extraction bilateral Hx of colonoscopy with polypectomy 20 yrs ago Family History Father Cancer Prostate Mother Cancer Breast/Liver Denies family history of Diabetes CAD (coronary artery disease) Dementia Chronic kidney disease (CKD) Bleeding disorder Family history of premature coronary artery disease Lung disease Hypertension Stroke Social History Smoking and tobacco status: never smoked Second hand smoke exposure: No Smoking risk assessment/counseling performed?: No Alcohol intake: current Alcohol intake frequency: holidays/special occasions o nly Desire information about alcohol rehabilitation?: No Counseling given: No Substance/Drug Use: never Desire information about substance/drug rehabilitation?: No Counseling given: No Adopted: No Caregiver/support person: No Lives independently: Yes Current gender identity: Male Physical Exam Const: COMMON NORMALS: patient oriented x3, no limitations and alert GENERAL APPEARANCE: cooperative and in distress (appears uncomfortable) NUTRITIONAL APPEARANCE: overweight ORIENTATION/CONSCIOUSNESS: Yes awake, Yes oriented to person, Yes oriented to place and Yes oriented to time Eye: COMMON NORMALS: no scleral icterus Resp: COMMON NORMALS: normal respiratory effort and clear to auscultation bilaterally AUSCULTATION: clear to auscultation bilaterally Cardio: COMMON NORMALS: regular rate and regular rhythm RATE: regular rate RHYTHM: regular rhythm GI: COMMON NORMALS: Soft to palpation and no masses INSPECTION: Yes normal to inspection AUSCULTATION: Yes Absent bowel sounds PALPATION: Yes Soft to palpation, Yes Tenderness to palpation present (GI) (diffusely), No Guarding due to palpation present (GI) and No Rigid due to palpation : COMMON NORMALS: Yes no CVA tenderness BLADDER/KIDNEY EXAM: Yes no CVA tenderness Back/Pelvis: COMMON NORMALS: no CVA tenderness, thoracic and lumbar spine normal to inspection, no thoracic nor lumbar tenderness and thoraco-lumbar ROM normal Extremity: COMMON NORMALS: normal to inspection GENERAL: Yes normal exam except as noted Neuro: GUSTAVO COMA SCALE: document GCS findings Gustavo coma scale eye open ing: Spontaneous Gustavo coma scale verbal response: Orientated Gustavo coma scale motor response: Obey commands [place] coma scale total score: 15 COMMON NORMALS: patient oriented x3 SENSORIUM/ORIENTATION: Yes alert, Yes oriented to person, Yes oriented to place and Yes oriented to time Skin: COMMON NORMALS: no rashes or lesions noted GENERAL SKIN EXAM: no rashes or lesions noted Course Consultations: Consultation #1: Dr. Shrestha-will admit patient-requests maintenance fluids at 150cc/hour and NG tube placement Consultation #2: Dr. Hilton-recommends magnesium, phosphorus, TSH, hemoglobin A1c; admit to [facility] Vital Signs: Vital signs: Vital Signs Temperature 98.1 F 04/29/23 07:11 Pulse Rate 57 L 04/29/23 07:11 Respiratory Rate 20 H 04/29/23 07:11 Blood Pressure 168/94 04/29/23 07:11 Pulse Oximetry 98 04/29/23 07:39 Oxygen Delivery Me thod Room Air 04/29/23 07:39 MDM - Abdominal Pain Medical Decision Making Patient is a 67-year-old male here with a suspected partial small bowel obstruction. He is not passing stool or flatulence. He states his symptoms feel like previous bowel obstructions. He is requesting hospitalization which I think is reasonable. I spoke to Dr. Shrestha who will consult on patient while in the hospital-recommends fluids at 150 cc/hour and NG tube placement. I spoke to Dr. Hilton who will admit the patient. Lab Data 04/29/23 07:15 04/29/23 07:15 Labs/Radiology: Radiology Impressions Abdomen/Pelvis CT 04/29/23 07:13 IMPRESSION: 1. Suspect partial small bowel obstruction with mild right lower quadrant swirling and mesenteric edema raising the possibility of internal hernia and/or adhesive disease. 2. Additional chronic and incidental findings as above, to include small to moderate hiatal hernia, colonic diverticulosis, prostatomegaly, and findings characteristic for sclerosing mesenteritis. Chest X-Ray 04/29/23 09:00 IMPRESSION: No acute findings. Laboratory Results WBC 13.6 10^3/uL (4.0-10.0) H 04/29/23 07:15 RBC 5.57 10^6/uL (4.1-5.3) H 04/29/23 07:15 Hgb 18.0 g/dL (11.7-16.6) H 04/29/23 07:15 Hct 52.3 % (42.0-52.0) H 04/29/23 07:15 MCV 93.9 fl (80-94) 04/29/23 07:15 MCH 32.3 pg (28.0-34.0) 04/29/23 07:15 MCHC 34.4 g/dL (30.0-36.0) 04/29/23 07:15 RDW 13.1 % (12.1-15.1) 04/29/23 07:15 Plt Count 217 10^3/cmm (130-400) 04/29/23 07:15 MPV 10.1 fL (7.4-10.4) 04/29/23 07:15 Neut % (Auto) 79.7 % 04/29/23 07:15 Lymph % (Auto) 13.7 % 04/29/23 07:15 [place] % (Auto) 5.8 % 04/29/23 07:15 Eos % (Auto) 0.3 % 04/29/23 07:15 Baso % (Auto) 0.2 % 04/29/23 07:15 Neut # (Auto) 10.80 10^3/uL (1.8-7.7) H 04/29/23 07:15 Lymph # (Auto) 1.9 10^3/uL (0.8-4.8) 04/29/23 07:15 [place] # (Auto) 0.8 10^3/uL (0.2-0.9) 04/29/23 07:15 Eos # (Auto) 0.0 10^3/uL (0.0-0.8) 04/29/23 07:15 Baso # (Auto) 0.0 10^3/uL (0.0-0.1) 04/29/23 07:15 Nucleated RBC % (auto) 0 % 04/29/23 07:15 Nucleated RBCs # 0.0 /100WBC 04/29/23 07:15 Sodium 139 mmol/L (136-145) 04/29/23 07:15 Potassium 4.5 mmol/L (3.5-5.1) 04/29/23 07:15 Chloride 102 mmol/L (98-107) 04/29/23 07:15 Carbon Dioxide 24 mmol/L (22-29) 04/29/23 07:15 Anion Gap 17.5 (5-19) 04/29/23 07:15 BUN 21 mg/dL (8-23) 04/29/23 07:15 Creatinine 1.1 mg/dL (0.7-1.2) 04/29/23 07:15 GFR Calculation 66.8 mL/min (90-130) L 04/29/23 07:15 Glucose 170 mg/dL (65-115) H 04/29/23 07:15 Calculated Osmolality 295 mOsm/kg (285-295) 04/29/23 07:15 Lactic Acid 2.1 mmol/L (0.5-2.2) 04/29/23 07:15 Calcium 10.3 mg/dL (8.5-10.5) 04/29/23 07:15 Total Bilirubin 0.8 mg/dL (0.15-1.2) 04/29/23 07:15 AST 22 U/L (0-40) 04/29/23 07:15 ALT 28 U/L (0-41) 04/29/23 07:15 Alkaline Phosphatase 101 U/L (40-130) 04/29/23 07:15 Total Protein 8.0 g/dL (6.6-8.7) 04/29/23 07:15 Albumin 4.7 g/dL (3.5-5.2) 04/29/23 07:15 Globulin 3.3 g/dL (1.3-4.6) 04/29/23 07:15 Lipase 21 U/L (13-60) 04/29/23 07:15 Urine Color Yellow (Yellow) 04/29/23 05:20 Urine Appearance Clear (CLEAR) 04/29/23 05:20 Urine pH 5 (5-7) 04/29/23 05:20 Ur Specific [place] 1.005 (1.005-1.030) 04/29/23 05:20 Urine Protein Trace (Negative) 04/29/23 05:20 Urine Glucose (UA) Norm (Normal) 04/29/23 05:20 Urine Ketones Negative (Negative) 04/29/23 05:20 Urine Blood Neg (Negative) 04/29/23 05:20 Urine Nitrate Negative (Negative) 04/29/23 05:20 Urine Bilirubin Neg (Negative) 04/29/23 05:20 Urine Urobilinogen Norm mg/dL (Negative) 04/29/23 05:20 Ur Leukocyte Esterase Negative (Negative) 04/29/23 05:20 Urine RBC Rare /hpf (0-2) 04/29/23 05:20 Urine WBC Rare /hpf (0-5) 04/29/23 05:20 Ur Squamous Epith Cells None /hpf (0-5) 04/29/23 05:20 Amorphous Sediment Not Reportable 04/29/23 05:20 Urine Bacteria None /hpf (NONE) 04/29/23 05:20 Discharge Plan Discharge Patient Disposition: Admitted As Inpatient Clinical Impression: Partial obstruction of small intestine Condition: Stable Coding Level of Care Code 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 Documented by User: Philippe Lock DO 04/29/23 09:32 HPI - Abdominal Pain 2 General: Chief Complaint: Abdominal Pain Stated Complaint: stomach cramps/Fever/N/V Time Seen by Provider: 04/29/23 07:06 PFS ED PFSH: Medical History Small bowel obstruction Surgical History Hx of cataract extraction bilateral Hx of colonoscopy with polypectomy 20 yrs ago Family History Father Cancer Prostate Mother Cancer Breast/Liver Denies family history of Diabetes CAD (coronary artery disease) Dementia Chronic kidney disease (CKD) Bleeding disorder Family history of premature coronary artery disease Lung disease Hypertension Stroke Social History Smoking and tobacco status: never smoked Second hand smoke exposure: No Smoking risk assessment/counseling performed?: No Alcohol intake: current Alcohol intake frequency: holidays/special occasions only Desire information about alcohol rehabilitation?: No Counseling given: No Substance/Drug Use: never Desire information about substance/drug rehabilitation?: No Counseling given: No Adopted: No Caregiver/support person: No Lives independently: Yes Current gender identity: Male Physical Exam Neuro: GUSTAVO COMA SCALE: document GCS findings [place] coma scale total score: 15 Course Vital Signs: Vital signs: Vital Signs Temperature 98.1 F 04/29/23 07:11 Pulse Rate 57 L 04/29/23 07:11 Respiratory Rate 20 H 04/29/23 07:11 Blood Pressure 168/94 04/29/23 07:11 Pulse Oximetry 98 04/29/23 07:39 Oxygen Delivery Me thod Room Air 04/29/23 07:39 MDM - Abdominal Pain Medical Decision Making Patient is a 67-year-old male here with a suspected partial small bowel obstruction. He is not passing stool or flatulence. He states his symptoms feel like previous bowel obstructions. He is requesting hospitalization which I think is reasonable. I spoke to Dr. Shrestha who will consult on patient while in the hospital-recommends fluids at 150 cc/hour and NG tube placement. I spoke to Dr. Hilton who will admit the patient. Chart reviewed and patient discussed with midlevel. Agree with assessment and plan. Medical Records I reviewed the patient's medical records. Lab Data I reviewed the patient's lab results. 04/29/23 07:15 04/29/23 07:15 Labs/Radiology: Radiology Impressions Abdomen/Pelvis CT 04/29/23 07:13 IMPRESSION: 1. Suspect partial small bowel obstruction with mild right lower quadrant swirling and mesenteric edema raising the possibility of internal hernia and/or adhesive disease. 2. Additional chronic and incidental findings as above, to include small to moderate hiatal hernia, colonic diverticulosis, prostatomegaly, and findings characteristic for sclerosing mesenteritis. Chest X-Ray 04/29/23 09:00 IMPRESSION: No acute findings. Laboratory Results WBC 13.6 10^3/uL (4.0-10.0) H 04/29/23 07:15 RBC 5.57 10^6/uL (4.1-5.3) H 04/29/23 07:15 Hgb 18.0 g/dL (11.7-16.6) H 04/29/23 07:15 Hct 52.3 % (42.0-52.0) H 04/29/23 07:15 MCV 93.9 fl (80-94) 04/29/23 07:15 MCH 32.3 pg (28.0-34.0) 04/29/23 07:15 MCHC 34.4 g/dL (30.0-36.0) 04/29/23 07:15 RDW 13.1 % (12.1-15.1) 04/29/23 07:15 Plt Count 217 10^3/cmm (130-400) 04/29/23 07:15 MPV 10.1 fL (7.4-10.4) 04/29/23 07:15 Neut % (Auto) 79.7 % 04/29/23 07:15 Lymph % (Auto) 13.7 % 04/29/23 07:15 [place] % (Auto) 5.8 % 04/29/23 07:15 Eos % (Auto) 0.3 % 04/29/23 07:15 Baso % (Auto) 0.2 % 04/29/23 07:15 Neut # (Auto) 10.80 10^3/uL (1.8-7.7) H 04/29/23 07:15 Lymph # (Auto) 1.9 10^3/uL (0.8-4.8) 04/29/23 07:15 [place] # (Auto) 0.8 10^3/uL (0.2-0.9) 04/29/23 07:15 Eos # (Auto) 0.0 10^3/uL (0.0-0.8) 04/29/23 07:15 Baso # (Auto) 0.0 10^3/uL (0.0-0.1) 04/29/23 07:15 Nucleated RBC % (auto) 0 % 04/29/23 07:15 Nucleated RBCs # 0.0 /100WBC 04/29/23 07:15 Sodium 139 mmol/L (136-145) 04/29/23 07:15 Potassium 4.5 mmol/L (3.5-5.1) 04/29/23 07:15 Chloride 102 mmol/L (98-107) 04/29/23 07:15 Carbon Dioxide 24 mmol/L (22-29) 04/29/23 07:15 Anion Gap 17.5 (5-19) 04/29/23 07:15 BUN 21 mg/dL (8-23) 04/29/23 07:15 Creatinine 1.1 mg/dL (0.7-1.2) 04/29/23 07:15 GFR Calculation 66.8 mL/min (90-130) L 04/29/23 07:15 Glucose 170 mg/dL (65-115) H 04/29/23 07:15 Calculated Osmolality 295 mOsm/kg (285-295) 04/29/23 07:15 Lactic Acid 2.1 mmol/L (0.5-2.2) 04/29/23 07:15 Calcium 10.3 mg/dL (8.5-10.5) 04/29/23 07:15 Total Bilirubin 0.8 mg/dL (0.15-1.2) 04/29/23 07:15 AST 22 U/L (0-40) 04/29/23 07:15 ALT 28 U/L (0-41) 04/29/23 07:15 Alkaline Phosphatase 101 U/L (40-130) 04/29/23 07:15 Total Protein 8.0 g/dL (6.6-8.7) 04/29/23 07:15 Albumin 4.7 g/dL (3.5-5.2) 04/29/23 07:15 Globulin 3.3 g/dL (1.3-4.6) 04/29/23 07:15 Lipase 21 U/L (13-60) 04/29/23 07:15 Urine Color Yellow (Yellow) 04/29/23 05:20 Urine Appearance Clear (CLEAR) 04/29/23 05:20 Urine pH 5 (5-7) 04/29/23 05:20 Ur Specific [place] 1.005 (1.005-1.030) 04/29/23 05:20 Urine Protein Trace (Negative) 04/29/23 05:20 Urine Glucose (UA) Norm (Normal) 04/29/23 05:20 Urine Ketones Negative (Negative) 04/29/23 05:20 Urine Blood Neg (Negative) 04/29/23 05:20 Urine Nitrate Negative (Negative) 04/29/23 05:20 Urine Bilirubin Neg (Negative) 04/29/23 05:20 Urine Urobilinogen Norm mg/dL (Negative) 04/29/23 05:20 Ur Leukocyte Esterase Negative (Negative) 04/29/23 05:20 Urine RBC Rare /hpf (0-2) 04/29/23 05:20 Urine WBC Rare /hpf (0-5) 04/29/23 05:20 Ur Squamous Epith Cells None /hpf (0-5) 04/29/23 05:20 Amorphous Sediment Not Reportable 04/29/23 05:20 Urine Bacteria None /hpf (NONE) 04/29/23 05:20 Discharge Plan Discharge Patient Disposition: Admitted As Inpatient Clinical Impression: Partial obstruction of small intestine Condition: Stable Coding Level of Care Code 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
[2023-04-29 07:26] LABS: Basophils % 0.2 %; Eosinophils % 0.3 %; Hematocrit 52.3 % (42.0-52.0); Lymphocytes # 1.9 10^3/uL (0.8-4.8); Lymphocytes % 13.7 %; Mean Corpuscular HGB Conc 34.4 g/dL (30.0-36.0); Mean Corpuscular Hemoglobin 32.3 pg (28.0-34.0); Mean Corpuscular Volume 93.9 fl (80-94); Mean Platelet Volume 10.1 fL (7.4-10.4); Monocytes # 0.8 10^3/uL (0.2-0.9); Monocytes % 5.8 %; Neutrophils % 79.7 %; Nucleated Red Blood Cells % 0 %; Platelet Count 217 10^3/cmm (130-400); Red Blood Count 5.57 10^6/uL (4.1-5.3); Red Cell Distribution Width 13.1 % (12.1-15.1); White Blood Count 13.6 10^3/uL (4.0-10.0)
[2023-04-29] MEDS: ondansetron 2 mg/ML SDV 2 mL 4 MG IVP (07:26)
[2023-04-29] MEDS: morphine 4 mg/mL SDV 1 mL IVP (07:26)
[2023-04-29] MEDS: sodium chloride 0.9% 1,000 ML 999 ML IV (07:26)
[2023-04-29 07:45] LABS: Lactic Sepsis W/Reflex 2.1 mmol/L (0.5-2.2)
[2023-04-29 07:48] LABS: Alanine Aminotransferase 28 U/L (0-41); Albumin Level 4.7 g/dL (3.5-5.2); Alkaline Phosphatase 101 U/L (40-130); Anion Gap 17.5 (5-19); Aspartate Amino Transferase 22 U/L (0-40); Blood Urea Nitrogen 21 mg/dL (8-23); Calcium 10.3 mg/dL (8.5-10.5); Carbon Dioxide 24 mmol/L (22-29); Chloride 102 mmol/L (98-107); Globulin 3.3 g/dL (1.3-4.6); Glomerular Filtration Rate 66.8 mL/min (90-130); Glucose 170 mg/dL (65-115); Lipase 21 U/L (13-60); Osmolality Calculated 295 mOsm/kg (285-295); Potassium 4.5 mmol/L (3.5-5.1); Sodium 139 mmol/L (136-145); Total Bilirubin 0.8 mg/dL (0.15-1.2)
[2023-04-29] MEDS: iohexol 350 mg/mL 500 mL Btl (per mL) IV (08:07)
[2023-04-29 08:44] LABS: Add Urine Microscopic? YES; Bilirubin Urine Neg (Negative); Blood Urine Neg (Negative); Glucose Urine UA Norm (Normal); Ketones Urine Negative (Negative); Leukocyte Esterase Urine Negative (Negative); Nitrate Urine Negative (Negative); Protein Urine Trace (Negative); Specific Gravity, Urine 1.005 (1.005-1.030); Urine Appearance Clear (CLEAR); Urine Color Yellow (Yellow); Urobilinogen Urine Norm (Negative); pH Urine 5 (5-7)
[2023-04-29 08:50] LABS: RBC Urine RARE /hpf (0-2); WBC Urine RARE /hpf (0-5)
--- NOTE | 2023-04-29 09:00 | XRR_ITS ---
PROCEDURE INFORMATION: Exam: XR Chest Exam date and time: 04/29/2023 9:04 AM Age: 67 years old Clinical indication: Condition or disease; Other: Bowel obstruction. ; Additional info: Admission TECHNIQUE: Imaging protocol: Radiologic exam of the chest. Views: 1 view. COMPARISON: 1. CT abdomen pelvis w con* [id number] 04/29/2023 8:[address] abdomen pelvis w con* [id number] 02/05/2023 12:30 PM FINDINGS: Lungs: Unremarkable. No consolidation. Pleural spaces: Unremarkable. No pleural effusion. No pneumothorax. Heart/Mediastinum: Unremarkable. No cardiomegaly. Bones/joints: Unremarkable. XR/XR chest 1V portable [id number] IMPRESSION: No acute findings.
[2023-04-29 09:11] LABS: Reflex Lactate Order REFLEX LACTIC ORDERD
[2023-04-29] MEDS: LORazepam 2 mg/mL INJ 1 mL 1 MG IVP (09:42)
[2023-04-29 09:43] LABS: Magnesium 2.1 mg/dL (1.7-2.3); Phosphorus 1.4 mg/dL (2.5-4.5); Thyroid Stimulating Hormone 1.27 uIU/mL (0.27-4.20)
[2023-04-29 09:45] LABS: Estmated Average Glucose 131; Hemoglobin A1C 6.2 % (4.0-6.0)
--- NOTE | 2023-04-29 09:51 | XRR_ITS ---
PROCEDURE INFORMATION: Exam: XR Chest Exam date and time: 04/29/2023 10:00 AM Age: 67 years old Clinical indication: Device placement; Ng tube; Additional info: Ng tube placement TECHNIQUE: Imaging protocol: Radiologic exam of the chest. Views: 1 view. COMPARISON: 1. CR XR chest 1V portable [id number] 04/29/2023 9:[address] abdomen pelvis w con* [id number] 04/29/2023 8:[address] abdomen pelvis w con* [id number] 02/05/2023 12:30 PM FINDINGS: Tubes, catheters and devices: Interval enteric tube terminates in the stomach. Lungs: Mild left basilar linear atelectasis versus scarring. No focal consolidation. Pleural spaces: Unremarkable. No pleural effusion. No pneumothorax. Heart/Mediastinum: Unremarkable. No cardiomegaly. Bones/joints: Unremarkable. XR/XR chest 1V portable [id number] IMPRESSION: Adequately positioned enteric tube.
[2023-04-29 10:51] LABS: Lactic Acid level (Lactate) 1.3 mmol/L (0.5-2.2)
--- NOTE | 2023-04-29 11:26 | PM.HP ---
Providers/Chief Complaint Admitting Physician: Pelon Hilton MD Primary Care Provider: Joshua Ruiz DO Chief Complaint: stomach cramps/Fever/N/V History of Present Illness Zuleima Antony is a 67 year old male with a past medical history of recurrent bowel obstructions, no history of prior bowel surgery, recent history of EGD and colonoscopy, who presents to [facility] due to nausea, vomiting, abdominal pain abdominal ascension, lack of stooling for the last 24 hours he tells me that he this is his ninth bowel obstruction in his life so far he is never had any bowel surgeries no trauma, denies bloody or black stools, Review of Systems Const: Denies: fever(s) or chills Eyes: Denies: change in vision ENMT: Denies: throat pain Card: Denies: chest pain Resp: Denies: dyspnea GI: Reports: abdominal pain, nausea and vomiting : Reports: difficulty urinating; Denies: flank pain Musc: Denies: neck pain or back pain Skin/Breast: Denies: rash Neuro: Denies: headache(s) or numbness in extremities Endo: Denies: polyuria Jan/Lymph: Denies: easy bruising Medications/Allergies Home Medications Medication Instructions Recorded Confirmed Last Taken Type sour whyte extract 1,000 mg 1,000 mg PO DAILY 02/05/23 04/29/23 04/28/23 History capsule (Tart Whyte Extract) pantoprazole 40 mg tablet,delayed 40 mg PO BID 6 weeks #84 tabs 04/23/23 04/29/23 04/28/23 Rx release (Protonix) sucralfate 1 gram tablet (Carafate) 1 g PO BID 4 weeks #56 tabs 04/23/23 04/29/23 04/28/23 Rx docusate sodium 50 mg capsule 100 mg PO BID 04/29/23 04/29/23 04/28/23 History (Stool Softener) polyethylene glycol 3350 17 4 g PO BID 04/29/23 04/29/23 04/28/23 History gram/dose oral powder (Miralax) Allergies Allergy/AdvReac Type Severity Reaction Status Date / Time tetnus shot Allergy Mild ALGY-Fever Uncoded 04/29/23 07:15 PFSH Acute PFSH: Medical History Small bowel obstruction Surgical History Hx of cataract extraction bilateral Hx of colonoscopy with polypectomy 20 yrs ago Family History Father Cancer Prostate Mother Cancer Breast/Liver Denies family history of Diabetes CAD (coronary artery disease) Dementia Chronic kidney disease (CKD) Bleeding disorder Family history of premature coronary artery disease Lung disease Hypertension Stroke Social History Smoking and tobacco status: never smoked Second hand smoke exposure: No Smoking risk assessment/counseling performed?: No Alcohol intake: current Alcohol intake frequency: holidays/special occasions only Desire information about alcohol rehabilitation?: No Counseling given: No Substance/Drug Use: never Desire information about substance/drug rehabilitation?: No Counseling given: No Adopted: No Caregiver/support person: No Lives independently: Yes Current gender identity: Male Vitals/I&O/Wt Last Vital Signs Temp 98.1 F 04/29/23 07:11 Pulse 57 L 04/29/23 07:11 Resp 20 H 04/29/23 07:11 BP 168/94 04/29/23 07:11 Pulse Ox 98 04/29/23 07:39 O2 Del Method Room Air 04/29/23 10:13 04/28/23 04/29/23 04/29/23 22:59 06:59 14:59 Intake Total 1000 / 1000 Balance 1000 / 1000 Weight last 48 hrs Weight 104.326 kg Physical Exam Const: COMMON NORMALS: no acute distress and patient oriented x3 GENERAL APPEARANCE: cooperative, well kempt and well developed HENMT: COMMON NORMALS: normocephalic and Normal external nose present HEAD & SCALP: normocephalic FACE & SINUS: normal facial exam NOSE: Normal external nose present MOUTH: Normal oral and palatal mucosa present Eye: COMMON NORMALS: Equal, round and reactive pupils present, EOMs intact bilaterally, conjunctivae normal and no scleral icterus CONJUNCTIVA: Yes conjunctivae normal PUPIL: Yes Equal, round and reactive pupils present Neck/C-Spine: COMMON NORMALS: full ROM, no lymphadenopathy, no JVD, Thyroid normal and No carotid bruits THYROID: Thyroid normal Lymph: LYMPHATIC: no lymphadenopathy noted Chest: COMMONS NORMALS: normal inspection of the chest Resp: COMMON NORMALS: normal respiratory effort, No retractions, No use of accessory muscles and clear to auscultation bilaterally AUSCULTATION: clear to auscultation bilaterally Cardio: COMMON NORMALS: regular rate, regular rhythm, S1 normal heart sound present, S2 normal heart sound present, No murmurs present (Cardio) and Peripheral pulses 2+ throughout RATE: regular rate RHYTHM: regular rhythm HEART SOUNDS: S1 normal heart sound present and S2 normal heart sound present PERIPHERAL PULSES: Peripheral pulses 2+ throughout GI: OTHER: Abdomen soft, distended, diffuse tenderness, no guarding, no rebound, no rigidity, diminished bowel sounds : BLADDER/KIDNEY EXAM: Yes no CVA tenderness Back/Pelvis: COMMON NORMALS: no CVA tenderness Extremity: COMMON NORMALS: normal to inspection, full ROM, no calf tenderness and no pedal edema Neuro: COMMON NORMALS: patient oriented x3, CN's II-XII intact bilaterally, moves all extremities, no focal motor deficits and no sensory deficits noted MENINGEAL SIGNS: Yes no meningeal signs Psych: COMMON NORMALS: mental status grossly normal, Normal thought process present, cooperative and speech normal APPEARANCE: Yes well kempt SPEECH: Yes normal speech THOUGHT PROCESS: Normal thought process present Skin: COMMON NORMALS: turgor normal and no jaundice GENERAL SKIN EXAM: turgor normal Data 04/29/23 07:15 04/29/23 07:15 A&P Assessment and plan (1) Partial obstruction of small intestine: (2) Abdominal pain: (3) Enlarged prostate: Plan Partial small bowel obstruction -1. ? Suspect partial small bowel obstruction with mild right lower quadrant swirling and mesenteric edema raising the possibility of internal hernia and/or adhesive disease. Plan -Her abdominal exams -N.p.o. -Nasogastric tube in place -Zofran in place for nausea -Promethazine for nausea -Morphine for pain -Protonix for GI prophylaxis -Lovenox for DVT prophylaxis -Full code -General surgery consulted Attestations Medical Necessity Statement*: Patient requires hospitalization, inpatient, greater than 2 midnights, for partial small bowel obstruction Diagnoses Partial obstruction of small intestine K56.600 Abdominal pain R10.9 Enlarged prostate N40.0
[2023-04-29] MEDS: enoxaparin 40 mg/0.4 mL Syringe SUBCUT (11:52)
[2023-04-29] MEDS: sodium chloride 0.9% 1,000 ML 100 ML IV ×2 (11:52→21:56)
[2023-04-29] MEDS: pantoprazole 40 mg SDV IVP ×2 (11:52→23:45)
--- NOTE | 2023-04-29 17:48 | PM.CONSULT ---
Providers/Reason For Consult Consulting Physician/Specialty*: Dr. Shaun Shrestha, /General surgery Reason for Consult*: Small bowel obstruction Attending Physician: Pelon Hilton MD Primary Care Provider: Joshua Ruiz DO History of Present Illness History of Present Illness Zuleima Antony is a 67 year old male who presented to the hospital with abdominal pain, bloating and not passing flatus or having a bowel movement for 24 hours. He has a history of multiple small bowel obstructions that have all been relieved conservatively. He is never had abdominal surgery. He recently had an EGD and colonoscopy. Ulcerated duodenitis was identified. He does have a history of heavy ibuprofen use. There is no H. pylori infection. He is now on Protonix twice daily. He does report nausea and vomiting. Denies any hematemesis. His pain is diffuse and does not radiate. Palpation makes pain worse. Nothing makes pain better. CT the abdomen pelvis showed findings consistent with likely partial small bowel obstruction. There is some swirling in the right lower quadrant and there are signs consistent with sclerosing mesenteritis. Review of Systems General: Reports: 10 or more systems reviewed and unremarkable except in HPI and below Medications/Allergies Home Medications Medication Instructions Recorded Confirmed Last Taken Type sour whyte extract 1,000 mg 1,000 mg PO DAILY 02/05/23 04/29/23 04/28/23 History capsule (Tart Whyte Extract) pantoprazole 40 mg tablet,delayed 40 mg PO BID 6 weeks #84 tabs 04/23/23 04/29/23 04/28/23 Rx release (Protonix) sucralfate 1 gram tablet (Carafate) 1 g PO BID 4 weeks #56 tabs 04/23/23 04/29/23 04/28/23 Rx docusate sodium 50 mg capsule 100 mg PO BID 04/29/23 04/29/23 04/28/23 History (Stool Softener) polyethylene glycol 3350 17 4 g PO BID 04/29/23 04/29/23 04/28/23 History gram/dose oral powder (Miralax) Allergies Allergy/AdvReac Type Severity Reaction Status Date / Time tetnus shot Allergy Mild ALGY-Fever Uncoded 04/29/23 07:15 Current Medications Generic Name Dose Route Start Last Admin Trade Name Freq PRN Reason Stop Dose Admin Enoxaparin Sodium 40 mg 04/29/23 11:30 04/29/23 11:52 Enoxaparin 40 Mg/0.4 Ml Syringe SUBCUT 40 mg Q24H JAKI Administration Sodium Chloride 1,000 mls @ 100 mls/hr 04/29/23 10:54 04/29/23 11:52 Sodium Chloride 0.9% IV 100 mls/hr .Q10H JAKI Administration Pantoprazole Sodium 40 mg 04/29/23 11:30 04/29/23 11:52 Pantoprazole 40 Mg Sdv IVP 40 mg Q12H JAKI Administration PFSH Acute PFSH: Medical History (Updated 04/29/23 @ 17:53 by Shaun Shrestha DO) Small bowel obstruction Surgical History Hx of cataract extraction bilateral Hx of colonoscopy with polypectomy 20 yrs ago Family History Father Cancer Prostate Mother Cancer Breast/Liver Denies family history of Diabetes CAD (coronary artery disease) Dementia Chronic kidney disease (CKD) Bleeding disorder Family history of premature coronary artery disease Lung disease Hypertension Stroke Social History Smoking and tobacco status: never smoked Second hand smoke exposure: No Smoking risk assessment/counseling performed?: No Alcohol intake: current Alcohol intake frequency: holidays/special occasions only Desire information about alcohol rehabilitation?: No Counseling given: No Substance/Drug Use: never Desire information about substance/drug rehabilitation?: No Counseling given: No Adopted: No Caregiver/support person: No Lives independently: Yes Current gender identity: Male Vitals/I&O/Wt Last Vital Signs Temp 97.6 F 04/29/23 15:39 Pulse 72 04/29/23 15:39 Resp 17 04/29/23 15:39 BP 133/86 04/29/23 15:39 Pulse Ox 93 04/29/23 15:39 O2 Del Method Room Air 04/29/23 15:39 04/29/23 04/29/23 04/29/23 06:59 14:59 22:59 Intake Total 1000 / 1000 Balance 1000 / 1000 Weight last 48 hrs Weight 230 lb Physical Exam Narrative: General : Patient is well developed , no acute distress, oriented x3 Head : Normal cephalic, a-traumatic. Ears : Pinnae and external canal are normal. Hearing is normal. Eyes : PERRLA, Sclera and injection are normal. No conjunctival discharge. Nose : Mucous membranes are without erythema. Throat : buccal mucosa is normal, gums are without significant recession or hypertrophy. Lungs : Equal chest rise bilaterally, no use of accessory muscles, trachea is midline. Cor : Rate and rhythm are normal. Abdomen : Soft, distended diffuse mild tenderness, no g/r/m Extremities : No edema, no cyanosis or clubbing, dorsalis pedis pulses are present bilaterally, non-tender to palpation of calves. Upper extremities are normal bilaterally. Back : non-tender to palpation, no CVA tenderness. Neuro : CN II - XII intact, Upper and lower extremities have equal and full strength Data 04/29/23 07:15 04/29/23 07:15 A&P Assessment and plan (1) Duodenal ulcer disease: (2) Sclerosing mesenteritis: (3) Small bowel obstruction: Plan N.p.o. and NG tube to low intermittent suction IV fluids Protonix twice daily We will discuss corticosteroid treatment with medicine Conservative management for now. If obstruction does not resolve after a few days, he may need a diagnostic laparoscopy versus exploratory laparotomy Coding Level of Care Code 71812 Diagnoses Duodenal ulcer disease K26.9 Sclerosing mesenteritis K65.4 Small bowel obstruction K56.609
[2023-04-30] VITALS (10 sets, daily range): BP systolic 114–147; BP diastolic 67–84; PULSE 57–69; RESP 18–19; TEMP 36.4–36.9; O2SAT 93–98
[2023-04-30 05:15] LABS: Basophils % 0.3 %; Eosinophils # 0.1 10^3/uL (0.0-0.8); Eosinophils % 1.7 %; Hematocrit 43.6 % (42.0-52.0); Hemoglobin 14.6 g/dL (11.7-16.6); Lymphocytes # 1.9 10^3/uL (0.8-4.8); Lymphocytes % 29.8 %; Mean Corpuscular HGB Conc 33.5 g/dL (30.0-36.0); Mean Corpuscular Hemoglobin 31.9 pg (28.0-34.0); Mean Corpuscular Volume 95.2 fl (80-94); Mean Platelet Volume 10.5 fL (7.4-10.4); Monocytes # 0.6 10^3/uL (0.2-0.9); Monocytes % 9.6 %; Neutrophils # 3.71 10^3/uL (1.8-7.7); Neutrophils % 58.4 %; Nucleated Red Blood Cells % 0 %; Platelet Count 161 10^3/cmm (130-400); Red Blood Count 4.58 10^6/uL (4.1-5.3); Red Cell Distribution Width 13.3 % (12.1-15.1); White Blood Count 6.4 10^3/uL (4.0-10.0)
[2023-04-30 05:50] LABS: Alanine Aminotransferase 19 U/L (0-41); Albumin Level 3.8 g/dL (3.5-5.2); Alkaline Phosphatase 82 U/L (40-130); Anion Gap 13.1 (5-19); Aspartate Amino Transferase 15 U/L (0-40); Blood Urea Nitrogen 18 mg/dL (8-23); Calcium 8.2 mg/dL (8.5-10.5); Carbon Dioxide 25 mmol/L (22-29); Chloride 108 mmol/L (98-107); Glomerular Filtration Rate 66.8 mL/min (90-130); Glucose 98 mg/dL (65-115); Magnesium 2.1 mg/dL (1.7-2.3); Osmolality Calculated 296 mOsm/kg (285-295); Potassium 4.1 mmol/L (3.5-5.1); Sodium 142 mmol/L (136-145); Total Bilirubin 0.8 mg/dL (0.15-1.2); Total Protein 5.8 g/dL (6.6-8.7)
[2023-04-30] MEDS: sodium chloride 0.9% 1,000 ML 100 ML IV ×2 (08:22→17:05)
--- NOTE | 2023-04-30 08:44 | PC.NURSE ---
Patient is complaining of being tied down with all the tubes. Complaining throat hurts and wants that tube out of his nose. Patient states he will pull NG tube out his self. This nurse stated he really needed to keep it until Dr. Shrestha come to see him and told him what his plain is.
--- NOTE | 2023-04-30 11:10 | PC.NURSE ---
Went into patients room due to patient complaining of NG tube. Staff also noted gurgling sound from throat. Appeared NG tube had moved out of nare a ways. This nurse tried to replace back to line on NG tube. Able to place tubing within 6 of nare. Patient was unable to tolerate any more movement with throat being sore. This nurse called Dr. Shrestha. Patient is passing gas. Dr. Shrestha gave verbal order to pull the NG tube and give clear liquids. Patient also stated very small amount of stool was passed this am.
[2023-04-30] MEDS: phenol oral Spray 177 mL 3 SPRAY MUCOUS MEM (12:22)
[2023-04-30] MEDS: pantoprazole 40 mg SDV IVP ×2 (12:22→23:49)
--- NOTE | 2023-04-30 12:42 | PC.NURSE ---
Notified Dr. Shrestha of patient refusing Lovenox. Told patient he needed to ambulate in the halls.
[2023-04-30] MEDS: acetaminophen 325 mg Tablet 650 MG PO (17:23)
--- NOTE | 2023-04-30 17:54 | P.PN_ITS ---
Subjective Subjective: - Patient was seen this morning -He is very upset, sitting up on side of bed, -He wants his nasogastric tube removed, it is irritating the back of his throat -He cannot get comfortable, in any position, -No bowel movement reported, Vitals/I&O/Wt Last Vital Signs Temp 98 F 04/30/23 16:00 Pulse 62 04/30/23 16:00 Resp 18 04/30/23 16:00 BP 135/81 04/30/23 16:00 Pulse Ox 98 04/30/23 15:58 O2 Del Method Room Air 04/30/23 15:58 04/30/23 04/30/23 04/30/23 06:59 14:59 22:59 Intake Total 1480 / 1480 1471.667 / 2951.667 Output Total 1420 / 1720 Balance -1420 / 280 1480 / 1480 1471.667 / 2951.667 Weight last 48 hrs Weight 104.326 kg Physical Exam Const: COMMON NORMALS: no acute distress and patient oriented x3 HENMT: OTHER: Nasogastric tube in place Resp: COMMON NORMALS: normal respiratory effort, No retractions, No use of ac cessory muscles and clear to auscultation bilaterally AUSCULTATION: clear to auscultation bilaterally Cardio: COMMON NORMALS: regular rate, regular rhythm, S1 normal heart sound present and S2 normal heart sound present RATE: regular rate RHYTHM: regular rhythm HEART SOUNDS: S1 normal heart sound present and S2 normal heart sound present OTHER: Abdomen soft, distended, decreased scattered bowel sounds heard in all quadrants, no guarding, no rebound, no rigidity Extremity: COMMON NORMALS: no pedal edema Neuro: COMMON NORMALS: patient oriented x3 Psych: COMMON NORMALS: mental status grossly normal Data 04/30/23 04:34 04/30/23 04:34 A&P Assessment and plan (1) Partial obstruction of small intestine: (2) Abdominal pain: (3) Enlarged prostate: Plan Partial small bowel obstruction -1. ? Suspect partial small bowel obstruction with mild right lower quadrant swirling and mesenteric edema raising the possibility of internal hernia and/or adhesive disease. Plan Continue serial abdominal exams -N.p.o. -Nasogastric tube in place -Zofran in place for nausea -Promethazine for nausea -Morphine for pain -Protonix for GI prophylaxis -Lovenox for DVT prophylaxis -Full code -General surgery consulted Plan for today, continue to do serial abdominal exams, await surgery's recommendations, continue pain control Attestations Medical Necessity Statement*: Patient requires hospitalization for partial small bowel obstruction Diagnoses Partial obstruction of small intestine K56.600 Abdominal pain R10.9 Enlarged prostate N40.0
--- NOTE | 2023-04-30 18:53 | PC.NURSE ---
Dr. Shrestha gave verbal orders to give patient full liquid diet
[2023-05-01] VITALS: BP 136/84; PULSE 51; RESP 16; TEMP 36.6; O2SAT 95
[2023-05-01 04:00] VITALS: BP 157/88; PULSE 56; RESP 15; TEMP 36.6; O2SAT 96
[2023-05-01] MEDS: sodium chloride 0.9% 1,000 ML 100 ML IV (04:27)
[2023-05-01 05:34] LABS: Basophils % 0.3 %; Eosinophils # 0.2 10^3/uL (0.0-0.8); Eosinophils % 3.7 %; Hematocrit 43.1 % (42.0-52.0); Hemoglobin 14.5 g/dL (11.7-16.6); Lymphocytes # 1.9 10^3/uL (0.8-4.8); Mean Corpuscular HGB Conc 33.6 g/dL (30.0-36.0); Mean Corpuscular Hemoglobin 32.6 pg (28.0-34.0); Mean Corpuscular Volume 96.9 fl (80-94); Mean Platelet Volume 10.2 fL (7.4-10.4); Monocytes # 0.6 10^3/uL (0.2-0.9); Monocytes % 10.5 %; Neutrophils # 3.19 10^3/uL (1.8-7.7); Neutrophils % 53.2 %; Nucleated Red Blood Cells % 0 %; Platelet Count 157 10^3/cmm (130-400); Red Blood Count 4.45 10^6/uL (4.1-5.3)
[2023-05-01 06:01] LABS: Alanine Aminotransferase 17 U/L (0-41); Albumin Level 3.4 g/dL (3.5-5.2); Alkaline Phosphatase 75 U/L (40-130); Anion Gap 13.2 (5-19); Aspartate Amino Transferase 14 U/L (0-40); Blood Urea Nitrogen 10 mg/dL (8-23); Calcium 8.3 mg/dL (8.5-10.5); Carbon Dioxide 26 mmol/L (22-29); Chloride 105 mmol/L (98-107); Globulin 2.1 g/dL (1.3-4.6); Glomerular Filtration Rate 84.2 mL/min (90-130); Glucose 102 mg/dL (65-115); Magnesium 2.1 mg/dL (1.7-2.3); Osmolality Calculated 289 mOsm/kg (285-295); Phosphorus 2.8 mg/dL (2.5-4.5); Potassium 4.2 mmol/L (3.5-5.1); Sodium 140 mmol/L (136-145); Total Bilirubin 0.7 mg/dL (0.15-1.2); Total Protein 5.5 g/dL (6.6-8.7)
[2023-05-01 07:40] VITALS: BP 144/88; PULSE 62; RESP 16; TEMP 36.9; O2SAT 94
--- NOTE | 2023-05-01 10:03 | P.DS_ITS ---
Discharge Providers Date of Admission: 04/29/23 10:04 Date of Discharge: May 01, 2023 Attending Provider at Admission: Pelon Hilton MD Attending Provider at Discharge: Pelon Hilton MD Primary Care Provider: Joshua Ruiz DO Diagnoses at Discharge Discharge Diagnosis (1) Partial obstruction of small intestine: Status: Acute (2) Abdominal pain: Status: Acute (3) Enlarged prostate: Status: Acute Reason for Visit Reason for Visit: stomach cramps/Fever/N/V Hospital Course Hospital Course Zuleima Antony is a 67 year old male with a past medical history of recurrent bowel obstructions, no history of prior bowel surgery, recent history of EGD and colonoscopy, who presents to [facility] due to nausea, vomiting, abdominal pain abdominal ascension, lack of stooling for the last 24 hours he tells me that he this is his ninth bowel obstruction in his life so far he is never had any bowel surgeries no trauma, denies bloody or black stools, Was admitted to [facility] for concerns for small bowel obstruction, NG tube placed, managed with bowel rest, IV fluids, general surgery was consulted, overall patient's clinical condition improved, NG tube removed, passing gas having bowel movements abdominal pain resolved. He will be discharged on a GI soft diet, advance diet slowly as outpatient monitor for recurrent nausea, vomiting, lack of stooling, abdominal pain if so go to the emergency room, follow-up with general surgery in 2 weeks. He does have prostamegaly on CT scan, needs to follow-up with urology. CT scan did show radi ographic evidence of sclerosing mesentery-itis, discharged on prednisone 40 mg once a day for 5 days, patient will see Dr. Shrestha today for referral to GI. Physical Exam Const: COMMON NORMALS: no acute distress and patient oriented x3 Resp: COMMON NORMALS: normal respiratory effort, No retractions, No use of accessory muscles and clear to auscultation bilaterally AUSCULTATION: clear to auscultation bilaterally Cardio: COMMON NORMALS: regular rate, regular rhythm, S1 normal heart sound present and S2 normal heart sound present RATE: regular rate RHYTHM: regular rhythm HEART SOUNDS: S1 normal heart sound present and S2 normal heart sound present GI: COMMON NORMALS: Normal to inspection, nondistended, normoactive bowel sounds present and non-tender Extremity: COMMON NORMALS: no pedal edema Neuro: COMMON NORMALS: patient oriented x3 Psych: COMMON NORMALS: mental status grossly normal Discharge Data Studies Completed and Pending Completed Studies During Hospitalization Category Date Time Status CT abdomen pelvis w con* [id number] Urgent Cat Scan 04/29/23 07:13 Completed XR chest 1V portable [id number] Stat Exams 04/29/23 09:00 Completed XR chest 1V portable [id number] Stat Exams 04/29/23 09:51 Completed Pending at discharge Category Date Time Status Complete Blood Count w/Auto AM LABS Lab 05/02/23 04:00 Ordered Comprehensive Metabolic Panel AM LABS Lab 05/02/23 04:00 Ordered Magnesium AM LABS Lab 05/02/23 04:00 Ordered Phosphorus AM LABS Lab 05/02/23 04:00 Ordered Radiology Impressions Abdomen/Pelvis CT 04/29/23 07:13 IMPRESSION: 1. Suspect partial small bowel obstruction with mild right lower quadrant swirling and mesenteric edema raising the possibility of internal hernia and/or adhesive disease. 2. Additional chronic and incidental findings as above, to include small to moderate hiatal hernia, colonic diverticulosis, prostatomegaly, and findings characteristic for sclerosing mesenteritis. Chest X-Ray 04/29/23 09:51 IMPRESSION: Adequately positioned enteric tube. Laboratory Results WBC 6.0 10^3/uL (4.0-10.0) 05/01/23 04:41 RBC 4.45 10^6/uL (4.1-5.3) 05/01/23 04:41 Hgb 14.5 g/dL (11.7-16.6) 05/01/23 04:41 Hct 43.1 % (42.0-52.0) 05/01/23 04:41 MCV 96.9 fl (80-94) H 05/01/23 04:41 MCH 32.6 pg (28.0-34.0) 05/01/23 04:41 MCHC 33.6 g/dL (30.0-36.0) 05/01/23 04:41 RDW 13.0 % (12.1-15.1) 05/01/23 04:41 Plt Count 157 10^3/cmm (130-400) 05/01/23 04:41 MPV 10.2 fL (7.4-10.4) 05/01/23 04:41 Neut % (Auto) 53.2 % 05/01/23 04:41 Lymph % (Auto) 32.0 % 05/01/23 04:41 [place] % (Auto) 10.5 % 05/01/23 04:41 Eos % (Auto) 3.7 % 05/01/23 04:41 Baso % (Auto) 0.3 % 05/01/23 04:41 Neut # (Auto) 3.19 10^3/uL (1.8-7.7) 05/01/23 04:41 Lymph # (Auto) 1.9 10^3/uL (0.8-4.8) 05/01/23 04:41 [place] # (Auto) 0.6 10^3/uL (0.2-0.9) 05/01/23 04:41 Eos # (Auto) 0.2 10^3/uL (0.0-0.8) 05/01/23 04:41 Baso # (Auto) 0.0 10^3/uL (0.0-0.1) 05/01/23 04:41 Nucleated RBC % (auto) 0 % 05/01/23 04:41 Nucleated RBCs # 0.0 /100WBC 05/01/23 04:41 Sodium 140 mmol/L (136-145) 05/01/23 04:41 Potassium 4.2 mmol/L (3.5-5.1) 05/01/23 04:41 Chloride 105 mmol/L (98-107) 05/01/23 04:41 Carbon Dioxide 26 mmol/L (22-29) 05/01/23 04:41 Anion Gap 13.2 (5-19) 05/01/23 04:41 BUN 10 mg/dL (8-23) 05/01/23 04:41 Creatinine 0.9 mg/dL (0.7-1.2) 05/01/23 04:41 GFR Calculation 84.2 mL/min (90-130) L 05/01/23 04:41 Glucose 102 mg/dL (65-115) 05/01/23 04:41 Estimat Average Glucose 131 04/29/23 07:15 Hemoglobin A1c 6.2 % (4.0-6.0) H 04/29/23 07:15 Calculated Osmolality 289 mOsm/kg (285-295) 05/01/23 04:41 Lactic Acid 2.1 mmol/L (0.5-2.2) 04/29/23 07:15 Lactic Acid (Sepsis) 1.3 mmol/L (0.5-2.2) 04/29/23 10:23 Calcium 8.3 mg/dL (8.5-10.5) L 05/01/23 04:41 Phosphorus 2.8 mg/dL (2.5-4.5) 05/01/23 04:41 Magnesium 2.1 mg/dL (1.7-2.3) 05/01/23 04:41 Total Bilirubin 0.7 mg/dL (0.15-1.2) 05/01/23 04:41 AST 14 U/L (0-40) 05/01/23 04:41 ALT 17 U/L (0-41) 05/01/23 04:41 Alkaline Phosphatase 75 U/L (40-130) 05/01/23 04:41 Total Protein 5.5 g/dL (6.6-8.7) L 05/01/23 04:41 Albumin 3.4 g/dL (3.5-5.2) L 05/01/23 04:41 Globulin 2.1 g/dL (1.3-4.6) 05/01/23 04:41 Lipase 21 U/L (13-60) 04/29/23 07:15 TSH 1.27 uIU/mL (0.27-4.20) 04/29/23 07:15 Urine Color Yellow (Yellow) 04/29/23 05:20 Urine Appearance Clear (CLEAR) 04/29/23 05:20 Urine pH 5 (5-7) 04/29/23 05:20 Ur Specific [place] 1.005 (1.005-1.030) 04/29/23 05:20 Urine Protein Trace (Negative) 04/29/23 05:20 Urine Glucose (UA) Norm (Normal) 04/29/23 05:20 Urine Ketones Negative (Negative) 04/29/23 05:20 Urine Blood Neg (Negative) 04/29/23 05:20 Urine Nitrate Negative (Negative) 04/29/23 05:20 Urine Bilirubin Neg (Negative) 04/29/23 05:20 Urine Urobilinogen Norm mg/dL (Negative) 04/29/23 05:20 Ur Leukocyte Esterase Negative (Negative) 04/29/23 05:20 Urine RBC Rare /hpf (0-2) 04/29/23 05:20 Urine WBC Rare /hpf (0-5) 04/29/23 05:20 Ur Squamous Epith Cells None /hpf (0-5) 04/29/23 05:20 Amorphous Sediment Not Reportable 04/29/23 05:20 Urine Bacteria None /hpf (NONE) 04/29/23 05:20 Vitals Last Vital Signs Temp 98.5 F 05/01/23 07:40 Pulse 62 05/01/23 07:40 Resp 16 05/01/23 07:40 BP 144/88 05/01/23 07:40 Pulse Ox 94 05/01/23 07:40 O2 Del Method Room Air 05/01/23 07:40 Discharge Plan Discharge Patient Disposition: Home Condition: Stable Prescriptions: New prednisone 20 mg tablet 20 mg PO BID 5 Days Qty: 10 0RF Continued Tart Whyte Extract 1,000 mg Capsule 1,000 mg PO DAILY pantoprazole [Protonix] 40 mg tablet,delayed release (DR/EC) 40 mg PO BID 42 Days Qty: 84 1RF sucralfate [Carafate] 1 gram tablet 1 g PO BID 28 Days Qty: 56 0RF Stool Softener 50 mg Capsule 100 mg PO BID Miralax 17 gram/dose Powder 4 g PO BID Discharge Orders: Discharge Order (Routine); Ordered 05/01/23 Ordered By: Pelon Hilton Referrals: Joshua Ruiz DO [Primary Care Provider] - 1-3 days Shaun Shrestha DO [Physician] - 2 weeks Discharge Diet: Cardiac Discharge Activity: Resume usual activity Patient Instructions: Opioid Safety Activity Restrictions/Additional Instructions: - Please follow-up with Dr. Shrestha -If you have any recurrent abdominal pain please go to emergency room Discharge Attestations Time Spent in Discharge Care*: greater than 30 min Quality Metrics Clinical Quality Measures [ No reported AMI, CVA or VTE this stay] Coding Level of Care Code 44066 Total time (in minutes) for Discharge: 45 Diagnoses Partial obstruction of small intestine K56.600 Abdominal pain R10.9 Enlarged prostate N40.0
[2023-05-01 13:30] VITALS: BP 144/88; PULSE 62; RESP 16; TEMP 36.9; O2SAT 94
== END 2023-05-01 13:31 | disposition home or self-care (01) | DRG 389 ==
LOC: ER 08:54 → MEDSURG 10:05
PROVIDERS: Admitting Provider Family Medicine; Emergency Provider Physician Assistant; PCP Family Medicine; Visit Provider Family Medicine
DX: K56.609 Unspecified intestinal obstruction, unspecified as to partial versus complete obstruction (principal); K65.4 Sclerosing mesenteritis; N40.0 Benign prostatic hyperplasia without lower urinary tract symptoms; K26.9 Duodenal ulcer, unspecified as acute or chronic, without hemorrhage or perforation
CPT/HCPCS: 36415; 71045; 74177; 80053; 81001; 83036; 83605; 83690; 83735; 84100; 84443; 85025; 94664; 96372; 96374; 96375; 99285; C9113; J1650; J2060; J2270; J2405; J7030; Q9967

== ENCOUNTER → 2023-05-07 15:18 | Outpatient (BNVA) | payer MEDICARE, SELFPAY | PROVIDERS: PCP Family Medicine; Visit Provider Surgery | DX: Z09 Encounter for follow-up examination after completed treatment for conditions other than malignant neoplasm (principal) | CPT/HCPCS: 99212 ==

== ENCOUNTER 2023-07-18 07:18 | Observation (INO) | payer MEDICARE, SELFPAY ==
[2023-07-18] VITALS (7 sets, daily range): BP systolic 138–209; BP diastolic 78–117; PULSE 69–92; RESP 16–20; TEMP 36.6–36.7; O2SAT 93–97; BMI 30.3
--- NOTE | 2023-07-18 07:41 | ECG_ITS ---
[facility] Test Date: 2023-07-18 Pat Name: Zuleima Antony Department: Room: Gender: Male [employer] Operator: : 1955 Requested By: Philippe Donnelly Order Number: [id number] Ju MD: Sandrine Perez M.D. Measurements Intervals [place] Rate: 68 P: 49 RI: 201 QRS: 2 QRSD: 103 T: 18 QT: 423 QTc: 453 Interpretive Statements SINUS RHYTHM WITH SINUS ARRHYTHMIA Compared to ECG 02/05/2023 11:32:58 Prolonged QT interval no longer present Electronically Signed On 07-18-2023 13:31:40 CDT by Sandrine Perez M.D. [id number]
--- NOTE | 2023-07-18 07:51 | CT_ITS ---
WS: [id number] CT ABDOMEN PELVIS TECHNIQUE: Noncontrast CT of the abdomen and pelvis with coronal and sagittal reformatted images. CLINICAL INFORMATION: Abdominal pain COMPARISON: CT 04/29/2023 DLP: 1057.[address] scans at [facility] use at least one of these dose optimization techniques: automated e xposure control; mA and/or kV adjustment per patient size (includes targeted exams where dose is matc hed to clinical indication); or iterative reconstruction. FINDINGS: Distended loops of fluid-filled in the upper and mid abdomen extending into the pelvis and RIGHT lower quadrant. No pneumatosis or free air. Small bowel loops measure approximately 3.5 cm in m aximum dimension. This is similar to 04/29/2023 but has progressed. Distal ileum is decompressed. Ramirez sition point is noted in the RIGHT lower quadrant coronal image 26 series 5. Also seen on sagittal im age 66 series 6. Apparent luminal narrowing at this level may be due to adhesions, internal hernia, o r intraluminal stricture. Distal ileum is decompressed to the ileocecal valve. Fecalization of distal obstructed small bowel. Mild swirling of the mesentery in the RIGHT lower quadrant similar to previo us. Markedly enlarged prostate measuring 5.4 cm. Recommend correlation PSA. Sigmoid diverticulosis. No ev idence of acute diverticulitis. Colon is decompressed. Moderate esophageal hiatal hernia. Lung bases are well aerated. Slight atelectasis in the lung bases. Noncalcified nodule in the LEFT upper lobe me asuring 7 mm unchanged from previous. Moderate spondylitic changes lumbar spine with mild to moderate central canal stenosis L3-L4 and L4-L5. Small bowel Stable slight uriah mesentery compatible with sclerosing mesenteritis. A few associated prominent lym ph nodes unchanged. IMPRESSION: 1. Evidence of partial small bowel obstruction with fluid distended loops of mid and distal small gene wel progressed compared to previous. Transition point in the RIGHT lower quadrant to normal ileum aristeo cribed above. 2. No pneumatosis or free air. 3. Colon is decompressed. 4. No other changes compared to previous. 5. Markedly enlarged prostate. Recommend correlation PSA. 6. Stable findings of sclerosing mesenteritis. 7. Stable moderate esophageal hiatal hernia. Notified Philippe Lock DO at 07/18/2023 9:33 AM.
--- NOTE | 2023-07-18 07:53 | ED_ITS ---
HPI - Abdominal Pain General: Chief Complaint: Abdominal Pain Stated Complaint: abd pain Time Seen by Provider: 07/18/23 07:23 Source: patient Mode of arrival: ambulatory History of Present Illness: 67-year-old male presents emergency room complaining abdominal pain that began early hours this morning woke him up he said nausea and vomiting. He denies any hematemesis coffee-ground emesis no hematochezia melena. He has had episodes of bowel obstructions in the past he is scheduled to see a surgeon in [place] sometime soon. Patient came in on April 29 of this year had a bowel obstruction was managed conservatively. She had not previously had any abdominal surgery. He had had a EGD and colonoscopy recently due to recurrent abdominal pain with nausea and vomiting. At that time he reported he had had 9 bowel obstructions in the past. Surgery was consulted. 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 He denies any fever sweats chills not a smoker he is not diabetic. MD elicited complaint: abdominal pain Pertinent past history: other (History of small bowel obstruction) Onset (ago): hour(s) Pain Consistency: constant Location: Diffuse Severity: moderate Quality: cramping Exacerbating factors: nothing Relieving factors: nothing Associated Symptoms: Reports bloating, GI cramping, nausea, poor appetite and vomiting; Denies anorexia, belching, change in bowel habits, change in stool character, chills, coffee ground emesis, constipation, diarrhea, dyspepsia, dysuria, excessive flatus, fever(s), heartburn, hematochezia, hematuria, hematemesis, fecal incontinence, loose stools, melena and syncope Review of Systems Const: Denies: fever(s), chills, fatigue or malaise Card: Denies: chest pain, palpitations, irregular heart rhythm or syncope Resp: Denies: dyspnea, productive cough or non-productive cough GI: Reports: abdominal pain, nausea, vomiting, bloating and GI cramping; Denies: hematemesis, coffee ground emesis, heartburn, diarrhea, constipation, belching, excessive flatus, fecal incontinence, change in bowel habits, change in stool character, hematochezia or melena : Denies: dysuria or hematuria Skin/Breast: Denies: rash or pruritus PFS ED PFSH: Medical History (Updated 07/18/23 @ 13:58 by Philippe Lock DO) Gout Osteoarthritis Small bowel obstruction Surgical History Hx of cataract extraction bilateral Hx of colonoscopy with polypectomy 20 yrs ago Family History Father Cancer Prostate Mother Cancer Breast/Liver Denies family history of Diabetes CAD (coronary artery disease) Dementia Chronic kidney disease (CKD) Bleeding disorder Family history of premature coronary artery disease Lung disease Hypertension Stroke Social History Smoking and tobacco status: never smoked Second hand smoke exposure: No Smoking risk assessment/counseling performed?: No Alcohol intake: current Alcohol intake frequency: holidays/special occasions only Desire information about alcohol rehabilitation?: No Counseling given: No Substance/Drug Use: never Desire information about substance/drug rehabilitation?: No Counseling given: No Adopted: No Caregiver/support person: No Lives independently: Yes Current gender identity: Male Physical Exam Const: GENERAL APPEARANCE: cooperative ORIENTATION/CONSCIOUSNESS: Yes awake, Yes oriented to person, Yes oriented to place and Yes oriented to time HENMT: COMMON NORMALS: normocephalic, atraumatic and hearing grossly normal bilaterally HEAD & SCALP: normocephalic and atraumatic Resp: COMMON NORMALS: normal respiratory effort, No retractions, No use of accessory muscles and clear to auscultation bilaterally AUSCULTATION: clear to auscultation bilaterally Cardio: COMMON NORMALS: regular rate, regular rhythm and No murmurs present (Cardio) RATE: regular rate RHYTHM: regular rhythm GI: AUSCULTATION: Yes Hypoactive bowel sounds present PALPATION: Yes Tenderness to palpation present (GI) (Diffuse) : COMMON NORMALS: Yes no CVA tenderness BLADDER/KIDNEY EXAM: Yes no CVA tenderness Back/Pelvis: COMMON NORMALS: no CVA tenderness Extremity: COMMON NORMALS: normal to inspection, capillary refill normal, no clubbing, cyanosis or edema, no calf tenderness and no pedal edema Neuro: SENSORIUM/ORIENTATION: Yes oriented to person, Yes oriented to place and Yes oriented to time Skin: COMMON NORMALS: no rashes or lesions noted GENERAL SKIN EXAM: no rashes or lesions noted Course Vital Signs: Vital signs: Vital Signs Temperature 97.8 F 07/18/23 07:26 Pulse Rate 90 07/18/23 13:02 Respiratory Rate 16 07/18/23 13:02 Blood Pressure 145/92 07/18/23 12:47 Pulse Oximetry 93 07/18/23 13:02 Oxygen Delivery Me thod Room Air 07/18/23 13:02 MDM - Abdominal Pain Medical Decision Making Small bowel obstruction with a transition point. Attempted to place NG however patient would not tolerate. Consult surgery admit to hospitalist orders written Medical Records I reviewed the patient's medical records. Lab Data I reviewed the patient's lab results. 07/18/23 07:53 07/18/23 07:53 Labs/Radiology: Laboratory Results WBC 10.39 10^3/uL (3.29-11.43) 07/18/23 07:53 RBC 5.45 10^6/uL (3.85-5.65) 07/18/23 07:53 Hgb 17.70 g/dL (11.27-16.99) H 07/18/23 07:53 Hct 51.4 % (37-53) 07/18/23 07:53 MCV 94.3 fl (82-101) 07/18/23 07:53 MCH 32.5 pg (27-33) 07/18/23 07:53 MCHC 34.4 g/dL (30-55) 07/18/23 07:53 RDW 13.3 % (12.1-15.1) 07/18/23 07:53 Plt Count 167 10^3/cmm (157-399) 07/18/23 07:53 MPV 10.1 fL (7.4-10.4) 07/18/23 07:53 Neut % (Auto) 79.1 % 07/18/23 07:53 Lymph % (Auto) 14.0 % 07/18/23 07:53 [place] % (Auto) 6.0 % 07/18/23 07:53 Eos % (Auto) 0.3 % 07/18/23 07:53 Baso % (Auto) 0.2 % 07/18/23 07:53 Neut # (Auto) 8.23 10^3/uL (1.8-7.7) H 07/18/23 07:53 Lymph # (Auto) 1.5 10^3/uL (0.8-4.8) 07/18/23 07:53 [place] # (Auto) 0.6 10^3/uL (0.2-0.9) 07/18/23 07:53 Eos # (Auto) 0.0 10^3/uL (0.0-0.8) 07/18/23 07:53 Baso # (Auto) 0.0 10^3/uL (0.0-0.1) 07/18/23 07:53 Nucleated RBC % (auto) 0 % 07/18/23 07:53 Nucleated RBCs # 0.0 /100WBC 07/18/23 07:53 Sodium 135 mmol/L (136-145) L 07/18/23 07:53 Potassium 4.5 mmol/L (3.5-5.1) 07/18/23 07:53 Chloride 100 mmol/L (98-107) 07/18/23 07:53 Carbon Dioxide 21 mmol/L (22-29) L 07/18/23 07:53 Anion Gap 18.5 (5-19) 07/18/23 07:53 BUN 16 mg/dL (8-23) 07/18/23 07:53 Creatinine 1.0 mg/dL (0.7-1.2) 07/18/23 07:53 GFR Calculation 74.5 mL/min (90-130) L 07/18/23 07:53 Glucose 166 mg/dL (65-115) H 07/18/23 07:53 Calculated Osmolality 285 mOsm/kg (285-295) 07/18/23 07:53 Lactic Acid 1.7 mmol/L (0.5-2.2) 07/18/23 07:53 Calcium 9.8 mg/dL (8.5-10.5) 07/18/23 07:53 Total Bilirubin 0.5 mg/dL (0.15-1.2) 07/18/23 07:53 AST 19 U/L (0-40) 07/18/23 07:53 ALT 21 U/L (0-41) 07/18/23 07:53 Alkaline Phosphatase 109 U/L (40-130) 07/18/23 07:53 Total Protein 7.8 g/dL (6.6-8.7) 07/18/23 07:53 Albumin 4.4 g/dL (3.5-5.2) 07/18/23 07:53 Globulin 3.4 g/dL (1.3-4.6) 07/18/23 07:53 Lipase 22 U/L (13-60) 07/18/23 07:53 All radiology interpretation(s) finalized by discharge Discharge Plan Discharge Patient Disposition: Admitted As Inpatient Admit Provider: Clyde Florian Clinical Impression: Bowel obstruction, Sclerosing mesenteritis Condition: Stable Coding Level of Care Code ED [employer]
[2023-07-18 08:09] LABS: Basophils % 0.2 %; Eosinophils % 0.3 %; Hematocrit 51.4 % (37-53); Lymphocytes # 1.5 10^3/uL (0.8-4.8); Mean Corpuscular HGB Conc 34.4 g/dL (30-55); Mean Corpuscular Hemoglobin 32.5 pg (27-33); Mean Corpuscular Volume 94.3 fl (82-101); Mean Platelet Volume 10.1 fL (7.4-10.4); Monocytes # 0.6 10^3/uL (0.2-0.9); Neutrophils # 8.23 10^3/uL (1.8-7.7); Neutrophils % 79.1 %; Nucleated Red Blood Cells % 0 %; Platelet Count 167 10^3/cmm (157-399); Red Blood Count 5.45 10^6/uL (3.85-5.65); Red Cell Distribution Width 13.3 % (12.1-15.1); White Blood Count 10.39 10^3/uL (3.29-11.43)
[2023-07-18 08:31] LABS: Alanine Aminotransferase 21 U/L (0-41); Albumin Level 4.4 g/dL (3.5-5.2); Alkaline Phosphatase 109 U/L (40-130); Aspartate Amino Transferase 19 U/L (0-40); Blood Urea Nitrogen 16 mg/dL (8-23); Calcium 9.8 mg/dL (8.5-10.5); Carbon Dioxide 21 mmol/L (22-29); Chloride 100 mmol/L (98-107); Globulin 3.4 g/dL (1.3-4.6); Glomerular Filtration Rate 74.5 mL/min (90-130); Glucose 166 mg/dL (65-115); Lipase 22 U/L (13-60); Osmolality Calculated 285 mOsm/kg (285-295); Sodium 135 mmol/L (136-145); Total Bilirubin 0.5 mg/dL (0.15-1.2); Total Protein 7.8 g/dL (6.6-8.7)
[2023-07-18 08:35] LABS: Anion Gap 18.5 (5-19); Potassium 4.5 mmol/L (3.5-5.1)
[2023-07-18] MEDS: morphine 4 mg/mL SDV 1 mL IVP ×2 (08:42→10:54)
[2023-07-18] MEDS: sodium chloride 0.9% 1,000 ML 999 ML IV (08:42)
[2023-07-18] MEDS: ondansetron 2 mg/ML SDV 2 mL 4 MG IVP (08:42)
[2023-07-18 08:52] LABS: Lactic Sepsis W/Reflex 1.7 mmol/L (0.5-2.2)
[2023-07-18] MEDS: LORazepam 2 mg/mL INJ 1 mL IVP ×2 (10:12→10:54)
--- NOTE | 2023-07-18 10:35 | PM.HP ---
Providers/Chief Complaint Admitting Physician: Clyde Florian MD Primary Care Provider: Joshua Ruiz DO Chief Complaint: abd pain History of Present Illness Zuleima Antony is a 67 year old male that presents with complaints of vomiting, abdominal pain since this morning. He has had multiple bowel obstructions in the past. Last time he passed flatus was yesterday. He relates he knows he has another bowel obstruction. Last hospitalization was in April. He denies any fevers. No blood in stool or black or tarry stools. Reports he has recently undergone an EGD and colonoscopy as documented in the record. Review of Systems General: Reports: 10 or more systems reviewed and unremarkable except in HPI and below Card: Denies: chest pain Resp: Denies: dyspnea GI: Reports: abdominal pain, nausea and vomiting; Denies: hematemesis, hematochezia or melena Medications/Allergies Home Medications Medication Instructions Recorded Confirmed Last Taken Type sour whyte extract 1,000 mg 1,000 mg PO DAILY 02/05/23 07/18/23 07/17/23 History capsule (Tart Whyte Extract) docusate sodium 50 mg capsule 100 mg PO BID 04/29/23 07/18/23 07/17/23 History (Stool Softener) polyethylene glycol 3350 17 4 g PO BID 04/29/23 07/18/23 07/17/23 History gram/dose oral powder (Miralax) allopurinol 100 mg tablet 200 mg PO BID #120 tabs 07/10/23 07/18/23 07/17/23 Rx meloxicam 15 mg tablet 15 mg PO DAILY #30 tabs 07/10/23 07/18/23 07/17/23 Rx pantoprazole 40 mg tablet,delayed 40 mg PO DAILY 90 days #90 tabs 07/10/23 07/18/23 07/17/23 Rx release (Protonix) Allergies Allergy/AdvReac Type Severity Reaction Status Date / Time tetnus shot Allergy Mild ALGY-Fever Uncoded 07/18/23 07:30 PFSH Acute PFSH: Medical History (Updated 07/18/23 @ 10:37 by Clyde Florian MD) Gout Osteoarthritis Small bowel obstruction Surgical History Hx of cataract extraction bilateral Hx of colonoscopy with polypectomy 20 yrs ago Family History Father Cancer Prostate Mother Cancer Breast/Liver Denies family history of Diabetes CAD (coronary artery disease) Dementia Chronic kidney disease (CKD) Bleeding disorder Family history of premature coronary artery disease Lung disease Hypertension Stroke Social History Smoking and tobacco status: never smoked Second hand smoke exposure: No Smoking risk assessment/counseling performed?: No Alcohol intake: current Alcohol intake frequency: holidays/special occasions only Desire information about alcohol rehabilitation?: No Counseling given: No Substance/Drug Use: never Desire information about substance/drug rehabilitation?: No Counseling given: No Adopted: No Caregiver/support person: No Lives independently: Yes Current gender identity: Male Vitals/I&O/Wt Last Vital Signs Temp 97.8 F 07/18/23 07:26 Pulse 73 07/18/23 07:26 Resp 20 H 07/18/23 07:26 BP 209/117 07/18/23 07:26 Pulse Ox 97 07/18/23 07:26 O2 Del Method Room Air 07/18/23 07:26 Weight last 48 hrs Weight 104.326 kg Physical Exam Narrative: General exam is a white male, about to get an NG. HEENT: Atraumatic normocephalic. Oropharynx clear Neck is supple no lymphadenopathy thyromegaly Cardiovascular regular rate and rhythm, no murmur Lungs clear Abdomen slightly distended. Tenderness is mainly present upper abdomen. exam was deferred Extremities no cyanosis clubbing or edema, cap refill brisk Skin no rash Neuro no obvious focal deficits Data 07/18/23 07:53 07/18/23 07:53 Other Labs: Liver function tests within normal limits Lipase normal CT abdomen and pelvis which I reviewed demonstrates evidence of small bowel obstruction with fluid distended loops and transition point right lower quadrant. Enlarged prostate is present. Findings of sclerosing mesenteritis is noted. Stable hiatal hernia. A&P Assessment and plan (1) Bowel obstruction: Patient presents with partial small bowel obstruction. He has evidence of sclerosing mesenteritis on CT which is an old finding Transition point is seen on CT. Pain control Hydration NG to low intermittent suction Surgical consultation Qualifiers: Intestinal obstruction type: obstruction due to adhesions Intestinal obstruction extent: partial Qualified Code(s): K56.51 - Intestinal adhesions [bands], with partial obstruction (2) Sclerosing mesenteritis: See above Plan Elevated blood pressure. Likely secondary to pain and bowel obstruction. Monitor and address as needed. Full code Lovenox for DVT prophylaxis. Attestations Medical Necessity Statement*: Will need greater than 2 midnight stay for evaluation and treatment of small bowel obstruction with transition point Diagnoses Bowel obstruction K56.51 Intestinal obstruction type: obstruction due to adhesions Intestinal obstruction extent: partial Sclerosing mesenteritis K65.4 Time Spent (min) 47
--- NOTE | 2023-07-18 11:31 | PC.NURSE ---
attempted to place NG tube. unable to get it down due to pt pulling away. md notified. GI md notified also. order given to hold placement for now.
--- NOTE | 2023-07-18 11:57 | P.CONIM_ITS ---
Providers/Reason For Consult Consulting Physician/Specialty*: General surgery Reason for Consult*: Small bowel obstruction Attending Physician: Clyde Florian MD Primary Care Provider: Joshua Ruiz DO History of Present Illness History of Present Illness Zuleima Antony is a 67 year old male with history of sclerosing mesenteritis causing a small bowel obstruction, he has been admitted in the hospital in the past with a small bowel obstruction with discharge as being managed with a conservative Approach. patient presents today with 12 hours of abdominal pain, distension, has not been as gas or bowel movements in the last 12 hours. Per patient report he has previous episodes of SBO for this reason, he is scheduled to see a specialist in the [place] by August. Patient explains that last hospital stay he had a lot of difficulty with NG tube as it was causing irritation and he could not tolerate well, in addition he explains that he has received steroids for these recently in the past which appeared to help with his symptoms of his SBO. Review of Systems Narrative: 10 point review of systems was done and is negative otherwise noted in HPI Medications/Allergies Home Medications Medication Instructions Recorded Confirmed Last Taken Type sour whyte extract 1,000 mg 1,000 mg PO DAILY 02/05/23 07/18/23 07/17/23 History capsule (Tart Whyte Extract) docusate sodium 50 mg capsule 100 mg PO BID 04/29/23 07/18/23 07/17/23 History (Stool Softener) polyethylene glycol 3350 17 4 g PO BID 04/29/23 07/18/23 07/17/23 History gram/dose oral powder (Miralax) allopurinol 100 mg tablet 200 mg PO BID #120 tabs 07/10/23 07/18/23 07/17/23 Rx meloxicam 15 mg tablet 15 mg PO DAILY #30 tabs 07/10/23 07/18/23 07/17/23 Rx pantoprazole 40 mg tablet,delayed 40 mg PO DAILY 90 days #90 tabs 07/10/23 07/18/23 07/17/23 Rx release (Protonix) Allergies Allergy/AdvReac Type Severity Reaction Status Date / Time tetnus shot Allergy Mild ALGY-Fever Uncoded 07/18/23 07:30 PFSH Acute 2 PFSH: Medical History (Updated 07/18/23 @ 10:37 by Clyde Florian MD) Gout Osteoarthritis Small bowel obstruction Surgical History Hx of cataract extraction bilateral Hx of colonoscopy with polypectomy 20 yrs ago Family History Father Cancer Prostate Mother Cancer Breast/Liver Denies family history of Diabetes CAD (coronary artery disease) Dementia Chronic kidney disease (CKD) Bleeding disorder Family history of premature coronary artery disease Lung disease Hypertension Stroke Social History Smoking and tobacco status: never smoked Second hand smoke exposure: No Smoking risk assessment/counseling performed?: No Alcohol intake: current Alcohol intake frequency: holidays/special occasions only Desire information about alcohol rehabilitation?: No Counseling given: No Substance/Drug Use: never Desire information about substance/drug rehabilitation?: No Counseling given: No Adopted: No Caregiver/support person: No Lives independently: Yes Current gender identity: Male Vitals/I&O/Wt Last Vital Signs Temp 97.8 F 07/18/23 07:26 Pulse 73 07/18/23 11:51 Resp 18 07/18/23 11:51 BP 145/99 07/18/23 11:51 Pulse Ox 97 07/18/23 11:51 O2 Del Method Room Air 07/18/23 07:26 Weight last 48 hrs Weight 230 lb Physical Exam Narrative: General : Patient is well developed , no acute distress, oriented x3 Head : Normal cephalic, a-traumatic. Nose : Mucous membranes are without erythema. Lungs : Equal chest rise bilaterally, no use of accessory muscles, trachea is midline. CV : Rate and rhythm are normal. Abdomen : Abdominal exam is benign, abdomen is distended but soft and nontender. Extremities : No edema. Upper extremities are normal bilaterally. Back : non-tender to palpation, no CVA tenderness. Data 07/18/23 07:53 07/18/23 07:53 A&P Assessment and plan (1) Sclerosing mesenteritis: (2) Bowel obstruction: Qualifiers: Intestinal obstruction type: obstruction due to adhesions Intestinal obstruction extent: partial Qualified Code(s): K56.51 - Intestinal adhesions [bands], with partial obstruction Plan After complete history physical examination and review of all available clinical data the following is my assessment. Patient with small bowel obstruction, likely due to sclerosing mesenteritis, I agree with nonoperative management at this time. Patient will require an NG tube, he will need to be n.p.o., decompression should continue for 24 to 48 hours and after these a Gastrografin trial can be attempted. In addition patient may benefit of anti-inflammatory medication may be steroids to decrease inflammation, spine sclerosing mesenteritis. This can be done at the discretion of the primary team. I will continue to follow along the hospitalist team and do serial abdominal exams to evaluate the need for possible intervention. At the moment I do not anticipate the need of surgery, patient will require decompression and conservative management Coding Level of Care Code 61579 Diagnoses Sclerosing mesenteritis K65.4 Bowel obstruction K56.51 Intestinal obstruction type: obstruction due to adhesions Intestinal obstruction extent: partial
[2023-07-18] MEDS: enoxaparin 40 mg/0.4 mL Syringe SUBCUT (14:47)
[2023-07-18] MEDS: methylPREDNISolone sod succ 60 MG in water for injection-sterile 0.96 ML 11.52 MG IVP (14:48)
[2023-07-18] MEDS: pantoprazole 40 mg SDV IVP (14:48)
[2023-07-18] MEDS: ketorolac 30 mg/mL INJ 15 MG IVP ×2 (14:49→17:57)
[2023-07-18] MEDS: sodium chloride 0.9% 1,000 ML 150 ML IV ×2 (14:50→22:19)
[2023-07-19] MEDS: pantoprazole 40 mg SDV IVP (00:37)
[2023-07-19] MEDS: ketorolac 30 mg/mL INJ 15 MG IVP ×2 (00:37→06:30)
[2023-07-19 03:52] VITALS: BP 141/79; PULSE 78; RESP 18; TEMP 36.7; O2SAT 94
[2023-07-19 04:18] LABS: Basophils % 0.1 %; Eosinophils % 0.1 %; Hematocrit 44.9 % (37-53); Lymphocytes # 1.2 10^3/uL (0.8-4.8); Lymphocytes % 13.7 %; Mean Corpuscular HGB Conc 33.6 g/dL (30-55); Mean Corpuscular Hemoglobin 32.3 pg (27-33); Mean Corpuscular Volume 95.9 fl (82-101); Mean Platelet Volume 10.3 fL (7.4-10.4); Monocytes # 0.6 10^3/uL (0.2-0.9); Monocytes % 6.6 %; Neutrophils # 6.62 10^3/uL (1.8-7.7); Neutrophils % 79.1 %; Nucleated Red Blood Cells % 0 %; Platelet Count 158 10^3/cmm (157-399); Red Blood Count 4.68 10^6/uL (3.85-5.65); Red Cell Distribution Width 13.2 % (12.1-15.1); White Blood Count 8.37 10^3/uL (3.29-11.43)
[2023-07-19] MEDS: sodium chloride 0.9% 1,000 ML 150 ML IV (04:19)
[2023-07-19 04:35] LABS: Alanine Aminotransferase 13 U/L (0-41); Albumin Level 3.3 g/dL (3.5-5.2); Alkaline Phosphatase 83 U/L (40-130); Anion Gap 11.7 (5-19); Aspartate Amino Transferase 13 U/L (0-40); Blood Urea Nitrogen 23 mg/dL (8-23); Calcium 7.9 mg/dL (8.5-10.5); Carbon Dioxide 22 mmol/L (22-29); Chloride 107 mmol/L (98-107); Globulin 2.6 g/dL (1.3-4.6); Glomerular Filtration Rate 84.2 mL/min (90-130); Glucose 115 mg/dL (65-115); Magnesium 2.3 mg/dL (1.7-2.3); Osmolality Calculated 287 mOsm/kg (285-295); Potassium 4.7 mmol/L (3.5-5.1); Sodium 136 mmol/L (136-145); Total Bilirubin 0.6 mg/dL (0.15-1.2); Total Protein 5.9 g/dL (6.6-8.7)
[2023-07-19 07:53] VITALS: BP 147/88; PULSE 60; RESP 17; TEMP 36.3; O2SAT 97
--- NOTE | 2023-07-19 09:26 | P.DS_ITS ---
Discharge Providers Date of Admission: 07/18/23 10:46 Date of Discharge: July 19, 2023 Attending Provider at Admission: Clyde Florian MD Attending Provider at Discharge: Shilpa Rg MD Primary Care Provider: Joshua Ruiz DO Diagnoses at Discharge Discharge Diagnosis (1) Sclerosing mesenteritis: Status: Acute (2) Bowel obstruction: Status: Acute Reason for Visit Reason for Visit: abd pain Hospital Course Hospital Course 67-year-old male who was admitted for management evaluation of SBO, patient did not tolerate NG tube placement, however overnight patient started passing gas, he had 1 decent bowel movement, he is able to walk around abdomen exam is very benign, very pleasant and cooperative No active signs of dehydration. Patient did receive steroids for history of sclerosing mesenteritis. General surgery was consulted as well. General surgery cleared him to go home on 07/19. We will get Medrol pack at the time of discharge along lactulose. Physical Exam Narrative: Awake and alert Abdomen exam is benign Bowel sound present Pleasant and cooperative Signs of dehydration absent S1, S2 Doing well on room air Pleasant and cooperative Patient is walking in the hallway Discharge Data Studies Completed and Pending Completed Studies During Hospitalization Category Date Time Status CT abdomen pelvis wo con [id number] Stat Cat Scan 07/18/23 07:51 Completed Pending at discharge Category Date Time Status Urinalysis and Microscopic Stat Lab 07/18/23 10:38 Uncollected Laboratory Results WBC 8.37 10^3/uL (3.29-11.43) 07/19/23 03:59 RBC 4.68 10^6/uL (3.85-5.65) 07/19/23 03:59 Hgb 15.10 g/dL (11.27-16.99) 07/19/23 03:59 Hct 44.9 % (37-53) 07/19/23 03:59 MCV 95.9 fl (82-101) 07/19/23 03:59 MCH 32.3 pg (27-33) 07/19/23 03:59 MCHC 33.6 g/dL (30-55) 07/19/23 03:59 RDW 13.2 % (12.1-15.1) 07/19/23 03:59 Plt Count 158 10^3/cmm (157-399) 07/19/23 03:59 MPV 10.3 fL (7.4-10.4) 07/19/23 03:59 Neut % (Auto) 79.1 % 07/19/23 03:59 Lymph % (Auto) 13.7 % 07/19/23 03:59 [place] % (Auto) 6.6 % 07/19/23 03:59 Eos % (Auto) 0.1 % 07/19/23 03:59 Baso % (Auto) 0.1 % 07/19/23 03:59 Neut # (Auto) 6.62 10^3/uL (1.8-7.7) 07/19/23 03:59 Lymph # (Auto) 1.2 10^3/uL (0.8-4.8) 07/19/23 03:59 [place] # (Auto) 0.6 10^3/uL (0.2-0.9) 07/19/23 03:59 Eos # (Auto) 0.0 10^3/uL (0.0-0.8) 07/19/23 03:59 Baso # (Auto) 0.0 10^3/uL (0.0-0.1) 07/19/23 03:59 Nucleated RBC % (auto) 0 % 07/19/23 03:59 Nucleated RBCs # 0.0 /100WBC 07/19/23 03:59 Sodium 136 mmol/L (136-145) 07/19/23 03:59 Potassium 4.7 mmol/L (3.5-5.1) 07/19/23 03:59 Chloride 107 mmol/L (98-107) 07/19/23 03:59 Carbon Dioxide 22 mmol/L (22-29) 07/19/23 03:59 Anion Gap 11.7 (5-19) 07/19/23 03:59 BUN 23 mg/dL (8-23) 07/19/23 03:59 Creatinine 0.9 mg/dL (0.7-1.2) 07/19/23 03:59 GFR Calculation 84.2 mL/min (90-130) L 07/19/23 03:59 Glucose 115 mg/dL (65-115) 07/19/23 03:59 Calculated Osmolality 287 mOsm/kg (285-295) 07/19/23 03:59 Lactic Acid 1.7 mmol/L (0.5-2.2) 07/18/23 07:53 Calcium 7.9 mg/dL (8.5-10.5) L 07/19/23 03:59 Magnesium 2.3 mg/dL (1.7-2.3) 07/19/23 03:59 Total Bilirubin 0.6 mg/dL (0.15-1.2) 07/19/23 03:59 AST 13 U/L (0-40) 07/19/23 03:59 ALT 13 U/L (0-41) 07/19/23 03:59 Alkaline Phosphatase 83 U/L (40-130) 07/19/23 03:59 Total Protein 5.9 g/dL (6.6-8.7) L D 07/19/23 03:59 Albumin 3.3 g/dL (3.5-5.2) L 07/19/23 03:59 Globulin 2.6 g/dL (1.3-4.6) 07/19/23 03:59 Lipase 22 U/L (13-60) 07/18/23 07:53 Vitals Last Vital Signs Temp 97.4 F L 07/19/23 07:53 Pulse 60 07/19/23 07:53 Resp 17 07/19/23 07:53 BP 147/88 07/19/23 07:53 Pulse Ox 97 07/19/23 07:53 O2 Del Method Room Air 07/19/23 03:52 Discharge Plan Discharge Patient Disposition: Home Condition: Stable Prescriptions: New lactulose 20 gram/30 mL solution 10 g PO DAILY PRN (Reason: constipation) Qty: 1200 0RF methylprednisolone [Medrol (Delvis)] 4 mg tablets,dose pack See Rx Instructions .ROUTE .COMPLEX Qty: 21 0RF Rx Instructions: orally per package directions Continued pantoprazole [Protonix] 40 mg tablet,delayed release (DR/EC) 40 mg PO DAILY 90 Days Qty: 90 1RF allopurinol 100 mg tablet 200 mg PO BID Qty: 120 11RF Tart Whyte Extract 1,000 mg Capsule 1,000 mg PO DAILY Stool Softener 50 mg Capsule 100 mg PO BID polyethylene glycol 3350 [Miralax] 17 gram/dose Powder 4 g PO BID Discontinued meloxicam 15 mg tablet 15 mg PO DAILY Qty: 30 5RF Discharge Orders: Discharge Order (Routine); Ordered 07/19/23 Ordered By: Shilpa Rg Referrals: Joshua Ruiz DO [Primary Care Provider] - Patient Instructions: Opioid Safety Discharge Attestations Time Spent in Discharge Care*: greater than 30 min Quality Metrics Clinical Quality Measures [ No reported AMI, CVA or VTE this stay] Coding Level of Care Code Acute Code for Chg Fwd Diagnoses Sclerosing mesenteritis K65.4 Bowel obstruction K56.609
--- NOTE | 2023-07-19 09:49 | P.PN_ITS ---
Subjective Subjective: Patient doing well overnight, had a large bowel movement, is passing gas, abdominal pain has resolved, has not had any episodes of vomit. Per patient report is the usual course of his obstruction, as he has had this several times before. Vitals/I&O/Wt Last Vital Signs Temp 97.4 F L 07/19/23 07:53 Pulse 60 07/19/23 07:53 Resp 17 07/19/23 07:53 BP 147/88 07/19/23 07:53 Pulse Ox 97 07/19/23 07:53 O2 Del Method Room Air 07/19/23 03:52 07/18/23 07/19/23 07/19/23 22:59 06:59 14:59 Intake Total 1000.96 / 2000.96 900 / 2900.96 Output Total 0 / 0 Balance 1000.96 / 2000.96 900 / 2900.96 Weight last 48 hrs Weight 230 lb Physical Exam GI: OTHER: .Abdominal exam is benign, soft nontender, minimally distended. Data 07/19/23 03:59 07/19/23 03:59 A&P Assessment and plan (1) Bowel obstruction: Plan Patient shows resolving episode of a small bowel obstruction. Will be started on clear liquid diet and aggressive bowel regimen, if tolerating he can be discharged from the general surgery standpoint. Patient should receive a short course of steroids as this appears to help with his sclerosing mesenteritis. Patient will follow-up with a specialist in the [place] in 1 month. Attestations Medical Necessity Statement*: Patient cleared for discharge from the general surgery standpoint if he tolerates clear liquid diet. Coding Level of Care Code Acute Code for g Fwd Diagnoses Bowel obstruction K56.609
[2023-07-19] MEDS: polyethylene glycol 3350 Pkt 17 gm PO (10:05)
[2023-07-19 12:31] VITALS: BP 147/88; PULSE 60; RESP 17; TEMP 32.4; O2SAT 97
--- NOTE | 2023-07-19 12:34 | PC.NURSE ---
Patient's IV was removed and patient tolerated well. Patient is A&Ox3. Respirations even and non-labored on room air. Discharge instruction reviewed with patient and we reviewed new medications with patient. Patient verbalized understanding of discharge instructions including how to take new medications. Patient verbalized understanding of discharge instructions. Patient ambulated to the exit with a steady gait.
== END 2023-07-19 11:00 | disposition home or self-care (01) ==
LOC: ER 07:55 → MEDSURG 11:50
PROVIDERS: Admitting Provider Internal Medicine; Emergency Provider Family Medicine; PCP Family Medicine; Visit Provider Internal Medicine
DX: K65.4 Sclerosing mesenteritis (principal); K56.609 Unspecified intestinal obstruction, unspecified as to partial versus complete obstruction; M19.90 Unspecified osteoarthritis, unspecified site
CPT/HCPCS: 36415; 74176; 80053; 83605; 83690; 83735; 85025; 93005; 96372; 96374; 96375; 96376; 99285; C9113; G0378; J1650; J1885; J2060; J2270; J2405; J2930; J7030

== ENCOUNTER 2025-06-01 16:05 | Outpatient (CLI) | payer MEDICARE, SELFPAY ==
--- NOTE | 2025-06-01 16:25 | CT_ITS ---
WS: [id number] CTA HEAD TECHNIQUE: Contrast enhanced CTA of the head with coronal and sagittal reformatted images and maximum intensity projection (MIP) images. NASCET criteria utilized. CLINICAL INFORMATION: PULSATILE TINNITUS COMPARISON: None. DLP: 1613.[address] scans at [facility] use at least one of these dose optimization techniques: automated exposure control; mA and/or kV adjustment per patient size (includes targeted exams where dose is matched to clinical indication); or iterative reconstruction. FINDINGS: No evidence intracranial hemorrhage or mass effect. Mild small vessel changes. Mild parenchymal volume loss. Basal ganglia calcifications. INTRACRANIAL CTA: Distal vertebral arteries are patent. Basilar artery is patent. Persistent LEFT FIRST MATE. Normal vascularity to the FIRST MATE territory bilaterally. Both ICAs are patent at the skull base. Normal vascularity to the BONNIE and MCA territories bilaterally. No evidence of proximal flow-limiting stenosis. CT/CT angio head [id number] IMPRESSION: Normal intracranial CTA
[2025-06-01 17:12] LABS: Blood Urea Nitrogen 23 mg/dL (8-23)
[2025-06-01] MEDS: iohexol 350 mg/mL 500 mL Btl (per mL) IV (17:17)
== END 2025-06-01 16:06 | disposition home or self-care (01) ==
LOC: RAD 16:06
PROVIDERS: PCP Family Medicine; Visit Provider Nurse Practitioner Family
DX: H93.A9 Pulsatile tinnitus, unspecified ear (principal)
CPT/HCPCS: 70496; 82565; 84520